=== PATIENT | female | born 1955 | race Caucasian/White ===

== ENCOUNTER 2016-12-21 09:46 | Outpatient (CLI) | payer MEDICARE ==
[2016-12-21 10:25] LABS: #Basophils 0.1 thou/uL (0.0-0.2); #Eosinphils 0.1 thou/uL (0.0-0.7); #Lymphocytes 1.6 thou/uL (1.20-3.40); #Monocytes 0.4 thou/uL (0.11-0.59); #Neutrophils 3.9 thou/uL (1.40-6.50); %Basophils 1.9 % (0.0-1.0); %Eosinophils 2.3 % (0.0-10.0); %Lymphocytes 26.1 % (21.0-51.0); %Monocytes 6.3 % (0.0-10.0); %Neutrophils 63.4 % (42.0-75.0); Hemoglobin 14.4 g/dL (12.0-16.0); Mean Corpuscular HGB CONC 32.9 g/dL (32.0-36.0); Mean Corpuscular Hemoglobin 32.7 pg (27.0-31.0); Mean Corpuscular Volume 99.4 fl (81.0-99.0); Mean Platelet Volume 8.6 fL (7.4-10.4); Platelet Count 194 thou/uL (130-400); RBC Distribution Width 13.4 % (11.5-14.5); Red Blood Cell (RBC) Count 4.41 mill/uL (4.20-5.40); White Blood Cell (WBC) Count 6.2 thou/uL (4.8-10.8)
[2016-12-21 10:33] LABS: Hemoglobin A1c 5.6 % (4.0-6.0)
[2016-12-21 10:52] LABS: ALT (SGPT) 20 U/L (0-55); AST (SGOT) 15 U/L (5-34); Albumin 4.1 g/dL (3.4-4.8); Alkaline Phosphatase 55 U/L (40-150); Anion Gap 13 mmol/L (10-20); BUN (Urea Nitrogen) 16 mg/dL (9.8-20.1); Bilirubin, Direct 0.1 mg/dL (0.1-0.3); Bilirubin, Total Less than 0.3 mg/dL (0.2-1.2); Calc. Creatinine Clearance 0 mL/min (70-130); Calcium 9.3 mg/dL (7.8-10.44); Carbon Dioxide 23 mmol/L (23-31); Cardiac Risk 3.4 (Less than 4.5); Chloride 107 mmol/L (98-107); Cholesterol 167 mg/dL (< 200 Desired); Estimated GFR-MDRD 70; Glucose 104 mg/dL (80-115); HDL Cholesterol 49 mg/dL (>60 Neg Risk); LDL Cholesterol, Calculated 104 mg/dL; Potassium 4.4 mmol/L (3.5-5.1); Protein, Total 6.6 g/dL (5.8-8.1); Sodium 139 mmol/L (136-145); Triglycerides 68 mg/dL (Less than 150)
[2016-12-21 13:44] LABS: Bilirubin Negative (Negative); Blood, Urine Negative (Negative); Clarity Clear (Clear); Glucose, Urine (Dipstick) Negative (Negative); Leukocyte Negative (Negative); Nitrite Negative (Negative); Protein, Urine (Dipstick) Negative (Neg-Trace); Specific Gravity, Urine 1.015 (1.005-1.030); Urobilinogen 0.2 mg/dL (0.2-1.0)
[2016-12-21 14:00] LABS: Bacteria/HPF None Seen HPF (None Seen); RBC/HPF None Seen HPF (0-3); WBC/HPF 0-3 HPF (0-3)
[2016-12-21 18:36] LABS: Microalbumin Urine Less than 1.0 mg/dL (0.5-50.0); Microalbumin/Creat Ratio 20.6 mg/g (Less than 30)
== END 2016-12-21 09:47 | disposition home or self-care (01) ==
LOC: MADLABBHPM 09:46
PROVIDERS: ATTEND Family Medicine
DX: E11.9 Type 2 diabetes mellitus without complications (principal); E78.5 Hyperlipidemia, unspecified; E66.9 Obesity, unspecified
CPT/HCPCS: 36415; 80048; 80061; 80076; 81001; 82043; 83036; 84443; 85025

== ENCOUNTER 2017-04-05 09:36 | Outpatient (CLI) | payer MEDICARE ==
[2017-04-05 10:10] LABS: Hemoglobin A1c 5.6 % (4.0-6.0)
[2017-04-05 10:40] LABS: ALT (SGPT) 20 U/L (8-55); AST (SGOT) 18 U/L (5-34); Albumin 4.1 g/dL (3.4-4.8); Alkaline Phosphatase 57 U/L (40-150); Anion Gap 14 mmol/L (10-20); BUN (Urea Nitrogen) 19 mg/dL (9.8-20.1); Bilirubin, Direct 0.1 mg/dL (0.1-0.3); Bilirubin, Total Less than 0.3 mg/dL (0.2-1.2); Calc. Creatinine Clearance 0 mL/min (70-130); Calcium 9.1 mg/dL (7.8-10.44); Carbon Dioxide 20 mmol/L (23-31); Cardiac Risk 2.7 (Less than 4.5); Chloride 111 mmol/L (98-107); Cholesterol 157 mg/dl (< 200 Desired); Estimated GFR-MDRD 72; Glucose 102 mg/dL (80-115); HDL Cholesterol 58 mg/dL (>60 Neg Risk); LDL Cholesterol, Calculated 86 mg/dL; Potassium 4.5 mmol/L (3.5-5.1); Protein, Total 6.8 g/dL (6.0-8.3); Sodium 140 mmol/L (136-145); Triglycerides 64 mg/dL (Less than 150)
== END 2017-04-05 09:37 | disposition home or self-care (01) ==
LOC: MADLABBHPM 09:36
PROVIDERS: ATTEND Family Medicine
DX: E78.5 Hyperlipidemia, unspecified (principal); E11.9 Type 2 diabetes mellitus without complications
CPT/HCPCS: 36415; 80048; 80061; 80076; 83036

== ENCOUNTER 2017-07-08 09:48 | Outpatient (CLI) | payer MEDICARE ==
[2017-07-08 11:04] LABS: ALT (SGPT) 29 U/L (8-55); AST (SGOT) 23 U/L (5-34); Albumin 4.3 g/dL (3.4-4.8); Alkaline Phosphatase 58 U/L (40-150); Anion Gap 13 mmol/L (10-20); BUN (Urea Nitrogen) 19 mg/dL (9.8-20.1); Bilirubin, Direct 0.2 mg/dL (0.1-0.3); Bilirubin, Total 0.4 mg/dL (0.2-1.2); Calc. Creatinine Clearance 0 mL/min (70-130); Calcium 9.6 mg/dL (7.8-10.44); Carbon Dioxide 23 mmol/L (23-31); Cardiac Risk 3.1 (Less than 4.5); Chloride 107 mmol/L (98-107); Cholesterol 179 mg/dl (< 200 Desired); Estimated GFR-MDRD 67; Glucose 98 mg/dL (80-115); HDL Cholesterol 57 mg/dL (>60 Neg Risk); LDL Cholesterol, Calculated 103 mg/dL; Potassium 4.4 mmol/L (3.5-5.1); Protein, Total 7.4 g/dL (6.0-8.3); Sodium 139 mmol/L (136-145); Triglycerides 96 mg/dL (Less than 150)
== END 2017-07-08 09:49 | disposition home or self-care (01) ==
LOC: MADLABBHPM 09:48
PROVIDERS: ATTEND Family Medicine
DX: E78.5 Hyperlipidemia, unspecified (principal); E11.9 Type 2 diabetes mellitus without complications
CPT/HCPCS: 36415; 80048; 80061; 80076

== ENCOUNTER 2017-10-11 10:59 | Outpatient (CLI) | payer MEDICARE ==
[2017-10-11 11:43] LABS: ALT (SGPT) 25 U/L (8-55); AST (SGOT) 20 U/L (5-34); Albumin 4.2 g/dL (3.4-4.8); Alkaline Phosphatase 56 U/L (40-150); Anion Gap 16 mmol/L (10-20); BUN (Urea Nitrogen) 21 mg/dL (9.8-20.1); Bilirubin, Direct 0.2 mg/dL (0.1-0.3); Bilirubin, Total 0.4 mg/dL (0.2-1.2); Calc. Creatinine Clearance 0 mL/min (70-130); Calcium 9.5 mg/dL (7.8-10.44); Carbon Dioxide 20 mmol/L (23-31); Cardiac Risk 3.2 (Less than 4.5); Chloride 107 mmol/L (98-107); Cholesterol 162 mg/dl (< 200 Desired); Estimated GFR-MDRD 68; Glucose 104 mg/dL (80-115); HDL Cholesterol 50 mg/dL (>60 Neg Risk); LDL Cholesterol, Calculated 100 mg/dL; Potassium 4.4 mmol/L (3.5-5.1); Sodium 139 mmol/L (136-145); Triglycerides 60 mg/dL (Less than 150)
[2017-10-11 15:57] LABS: Hemoglobin A1c 5.6 % (4.0-6.0)
== END 2017-10-11 11:00 | disposition home or self-care (01) ==
LOC: MADLABBHPM 10:59
PROVIDERS: ATTEND Family Medicine
DX: E78.5 Hyperlipidemia, unspecified (principal)
CPT/HCPCS: 36415; 80048; 80061; 80076; 83036

== ENCOUNTER 2018-01-10 11:08 | Outpatient (CLI) | payer MEDICARE ==
--- NOTE | 2018-01-10 13:48 | RAD ---
RADIOGRAPH LEFT HIP TWO VIEWS: Date: 01-10-18 History: 62-year-old female with nontraumatic left hip pain for one week. Comparison: None. FINDINGS: Mild bony hypertrophy of the acetabular roof. Focal region of mild joint space narrowing at the super olateral aspect of the hip joint. Otherwise, the rest of the hip joint space is maintained. Femoral h ead contour is maintained. No subcapital osteophytes. Enthesophytes of the greater and lesser trochan ters. No fracture or dislocation. IMPRESSION: Minimal/mild osteoarthrosis of the left hip. POS: MICA
== END 2018-01-10 11:09 | disposition home or self-care (01) ==
LOC: MADRAD 11:08
PROVIDERS: ATTEND Family Medicine
DX: M25.552 Pain in left hip (principal)

== ENCOUNTER 2018-03-03 13:07 | Outpatient (CLI) | payer MEDICARE ==
--- NOTE | 2018-03-03 14:03 | RAD ---
LEFT FOOT THREE VIEWS: HISTORY: Dropped a table saw in the foot three days ago with left foot pain. COMPARISON: None. FINDINGS: Three views of the left foot show first metatarsal head hyperplasia and hallux valgus deformity of th e great toe. There is no evidence of acute fracture or dislocation. Mild diffuse soft tissue swelli ng is seen. IMPRESSION: Degenerative changes of the great toe without acute osseous abnormality. POS: MICA
== END 2018-03-03 13:08 | disposition home or self-care (01) ==
LOC: MADRAD 13:07
PROVIDERS: ATTEND Family Medicine
DX: S90.32XA Contusion of left foot, initial encounter (principal)

== ENCOUNTER 2018-03-21 10:36 | Outpatient (CLI) | payer MEDICARE ==
[2018-03-21 12:02] LABS: #Basophils 0.1 thou/uL (0.0-0.2); #Eosinphils 0.2 thou/uL (0.0-0.7); #Lymphocytes 1.7 thou/uL (1.20-3.40); #Monocytes 0.4 thou/uL (0.11-0.59); %Basophils 1.1 % (0.0-1.0); %Eosinophils 2.9 % (0.0-10.0); %Lymphocytes 32.5 % (21.0-51.0); %Monocytes 7.3 % (0.0-10.0); %Neutrophils 56.2 % (42.0-75.0); Hemoglobin 14.7 g/dL (12.0-16.0); Mean Corpuscular HGB CONC 32.3 g/dL (32.0-36.0); Mean Corpuscular Hemoglobin 30.9 pg (27.0-31.0); Mean Corpuscular Volume 95.6 fl (81.0-99.0); Platelet Count 184 thou/uL (130-400); RBC Distribution Width 13.1 % (11.5-14.5); Red Blood Cell (RBC) Count 4.76 mill/uL (4.20-5.40); White Blood Cell (WBC) Count 5.3 thou/uL (4.8-10.8)
[2018-03-21 12:16] LABS: ALT (SGPT) 25 U/L (8-55); AST (SGOT) 19 U/L (5-34); Albumin 4.2 g/dL (3.4-4.8); Alkaline Phosphatase 49 U/L (40-150); Anion Gap 13 mmol/L (10-20); BUN (Urea Nitrogen) 13 mg/dL (9.8-20.1); Calc. Creatinine Clearance 0 mL/min (70-130); Calcium 9.7 mg/dL (7.8-10.44); Carbon Dioxide 25 mmol/L (23-31); Chloride 107 mmol/L (98-107); Estimated GFR-MDRD 66; Globulin 2.7 g/dL (2.4-3.5); Glucose 99 mg/dL (80-115); Potassium 4.3 mmol/L (3.5-5.1); Protein, Total 6.9 g/dL (6.0-8.3); Sodium 141 mmol/L (136-145)
[2018-03-21 12:57] LABS: Bilirubin, Total 0.3 mg/dL (0.2-1.2)
[2018-03-21 13:00] LABS: Bilirubin Negative (Negative); Blood, Urine Negative (Negative); Clarity Clear (Clear); Glucose, Urine (Dipstick) Negative (Negative); Leukocyte Negative (Negative); Nitrite Negative (Negative); Protein, Urine (Dipstick) Negative (Neg-Trace); Urobilinogen 0.2 mg/dL (0.2-1.0)
[2018-03-21 13:04] LABS: Bacteria/HPF Rare-Few HPF (None Seen); RBC/HPF 0-3 HPF (0-3); Squamous Epithelial 0-3 HPF (0-3); WBC/HPF 0-3 HPF (0-3)
== END 2018-03-21 10:37 | disposition home or self-care (01) ==
LOC: MADLABBHPM 10:36
PROVIDERS: ATTEND Family Medicine
DX: Z01.818 Encounter for other preprocedural examination (principal); E11.22 Type 2 diabetes mellitus with diabetic chronic kidney disease; N18.9 Chronic kidney disease, unspecified
CPT/HCPCS: 36415; 80053; 81001; 84443; 85025

== ENCOUNTER 2018-07-22 13:56 | Inpatient (IN) | payer MEDICARE ==
[2018-07-22] MEDS ORDERED: Acetaminophen 500 MG TAB PO PRN (19:13)
[2018-07-22] MEDS ORDERED: Nicotine 21 MG PATCH TOP SCH (19:30)
[2018-07-22] MEDS: Pravastatin Sodium 20 MG TAB PO SCH (21:09)
[2018-07-22] MEDS: Ciprofloxacin 500 MG TAB PO SCH (21:09)
[2018-07-22] MEDS: metroNIDAZOLE 250 MG TAB PO SCH (21:09)
[2018-07-22] MEDS: Vancomycin HCl 1 GM in Sodium Chloride 0.9% 250 ML 250 ML IVPB SCH (21:18)
[2018-07-22] MEDS: Vancomycin HCl 500 MG in Sodium Chloride 0.9% 100 ML IVPB SCH (21:19)
[2018-07-23] MEDS: Ciprofloxacin 500 MG TAB PO SCH ×2 (05:18→19:35)
[2018-07-23] MEDS ORDERED: Acetaminophen 325 MG TAB PO PRN (08:18)
[2018-07-23] MEDS ORDERED: Sodium Chloride 0.9% 10 ML ONE (10:25)
[2018-07-23] MEDS: Aspirin 81 mg Enteric Coated Tablet PO SCH (10:27)
[2018-07-23] MEDS: Enoxaparin Sodium 40 MG/0.4 ML SYRINGE SC SCH (10:29)
[2018-07-23] MEDS: Clopidogrel Bisulfate 75 MG TAB PO SCH (10:29)
[2018-07-23] MEDS: metroNIDAZOLE 250 MG TAB PO SCH ×3 (10:30→20:22)
[2018-07-23] MEDS: Vancomycin HCl 500 MG in Sodium Chloride 0.9% 100 ML IVPB SCH ×2 (10:30→20:22)
[2018-07-23] MEDS: Vancomycin HCl 1 GM in Sodium Chloride 0.9% 250 ML 250 ML IVPB SCH ×2 (10:31→20:27)
[2018-07-23] MEDS: Nicotine 21 MG PATCH TOP SCH (10:36)
--- NOTE | 2018-07-23 12:20 | HP ---
Admitted to [facility] on the afternoon of 07/22/2018. CHIEF COMPLAINT: Infection in the left foot. PRESENT ILLNESS: The patient is a 62-year-old white female who has a history of diabetes that is t controlled requiring no medication, who also has neuropathy of the lower extremity, peripheral rafa ry disease and long smoking history. She had developed a very painful bunion on her left foot and sh e also had injured her left fifth toe by dropping a heavy object on the toe with a traumatic crush in [facility]. The crush injury resulted in some ulceration to the tip of the fifth toe and gangrenous change s and eventually resulted in amputation of the left fifth toe at the PIP joint. Simultaneously, she underwent a surgical repair of the bunion of the left foot. The left fifth toe had been complicated by infection and ulceration. The infection had improved, but the ulcerations pr ogressed and the wound was not healing that resulted in the amputation on 07/04/2018. The patient al so underwent the surgical correction of the bunion in the left foot with hardware in the first ray on that same day. The patient presented to my office on 07/12/2018 with her foot painful, very red and swelled with no pulses in that left foot and with evidence of amputation of the left fifth toe. The incision was on the dorsum of the left foot from the base of the toe to the mid foot, had a little s erous drainage from the incision and early breakdown of the skin. The patient was referred to the [facility] emergency room due to severe postop cellulitis of the left foot. The patient was hospitaliz ed there at the [facility] from 07/12/2018 until 07/22/2018 for the cellulitis of the left foot. The cultures from the left fifth toe grew a MRSA and a Streptococcus epidermidis that was sensitive to v ancomycin and rifampin. The patient was seen by Dr. Mandujano, Infectious Disease who recommended that t he patient be continued on IV vancomycin for a 6-week period due to this postop cellulitis with the r isk of deep penetration of the organism. He felt it was very difficult to rule out deep space infect ion and consequently recommended the 6-week course of IV vancomycin, 6-week course of oral Cipro and rifampin and then switching the patient to minocycline. The patient while there showed improvement i n the foot. The redness was gradually abating. There was some breakdown of the incision on the dors um of the foot. She was seen by cardiovascular surgeon and found to have significant iliac disease t o her legs with approximately 95% stenosis to the left leg. She underwent stents in both iliacs on without any complications. She had holiness of pulses in both feet. She had a PICC rubin e placed in the right arm for the administration of the antibiotics. She was recommended to stop smo taya, which she has done, has been using Nicoderm patches. The patient was transferred to [facility] on the afternoon of 07/22/2018, and her IV antibiotics that is vancomycin was continued. The patient was seen early on the morning of 07/23/2018, she said she was doing very well. Her foot was feeling a lot better. The foot looks better and the redness all gone away. She said she has complet catie stopped smoking and her plans on doing the same. She is feeling much better and very opt imistic about her foot. PAST HISTORY: Patient has a history of diabetes type 2. This was due to large amount of weight redu ction. Her diabetes has been controlled with diet alone and no medication. Her hemoglobin A1c was 5 .5 as of 06/21/2018. The patient has a history of traumatic injury to the left fifth toe that result ed in ulceration of the tip of the toe infection and eventual gangrene that resulted in amputation of the left fifth toe at the PIP joint on 07/04/2018. The patient had a bunion repair with hardware on the left foot on 07/04/2018 complicated by postop cellulitis, see above. The patient has peripheral neuropathy of the lower extremities, hyperlipidemia, peripheral artery disease, bilateral iliac dise ase particularly on the left, requiring stent placement bilaterally on 07/21/2018, venous insufficien cy of the lower extremities complicated by post-phlebitic syndrome of the right leg, depression, obes ity, spinal stenosis of the lumbar region at L4-L5, L5-S1 region for which she underwent a decompress ion surgery and placement of autograft and allograft for fusion and L5 diskectomy in 08/[address] Mala Chong. She also has severe cervical spondylosis for which she underwent a C4-C5 anterior cerv ical diskectomy and fusion and diskectomy at the C5-C6 in 05/[address] White. The patient has had a right carpal tunnel release, open de Quervain release, left ankle surgery for removal of a chipped bone, bilateral tubal ligation, tonsillectomy. PRESENT MEDICINES: Acetaminophen 500 mg every 6 hours p.r.n., aspirin 81 mg daily, ciprofloxacin 500 mg b.i.d. for 6 weeks, Plavix 75 mg daily, Lovenox 40 mg daily, metronidazole 250 mg t.i.d. for 6 we eks, Naprosyn 500 mg t.i.d. p.r.n., nicotine patch 21 mg daily, pravastatin 20 mg daily, sertraline 5 0 mg at bedtime, vancomycin 1500 mg every 12 hours for 6 weeks. ALLERGIES: MORPHINE, CODEINE, but able to take hydrocodone, potassium, Meloxicam and oxycodone. REVIEW OF SYSTEMS: General: The patient said she has not had any fever other than when she first en tered the hospital. She has not had any recent change in her weight. Head and Neck: No complaints. Pulmonary: No complaints. She says her breathing is much better since she stopped smoking. Cardi ovascular: No complaints. Gastrointestinal: No complaints. Genitourinary: No complaints. Muscul oskeletal: The patient said her left foot is feeling much better since the infection has improved. HABITS: Alcohol none. Tobacco, the patient smokes a pack of cigarettes a day, but has stopped these as of 07/12/2018. 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 She is and lives at home with her obed matthews CODE STATUS: FULL CODE. PHYSICAL EXAMINATION: GENERAL: Shows a very pleasant 62-year-old white female who is alert, oriented x3, appears very comf ortable and in no distress. VITAL SIGNS: Her temperature is 98.2, pulse 86, respirations 20, O2 saturation 97% on room air, bloo d pressure 160/64, earlier 135/73. Her weight is 218. HEAD: Normocephalic, atraumatic. EYES: Pupils are equal, round, and reactive. Sclerae nonicteric. EARS: TMs are clear. NOSE: Normal. MOUTH AND THROAT: Normal. NECK: Carotids are equal and strong, no bruits. Thyroid not enlarged. LUNGS: Clear. HEART: Regular rate. No murmurs. ABDOMEN: Soft, no organomegaly, nor areas of tenderness. EXTREMITIES: Lowe extremities, there is no edema. Right foot, dorsalis pedis pulse 2+, posterior ti bialis 2+. Left foot, dorsalis pedis 2+, posterior tibialis 2+. The patient has had the left fifth toe amputated at the PIP joint. There are sutures present at the tip of the toe. It looks that the toe is healing well. There is no redness. The foot has a dark pink discoloration over the dorsum of the foot beginning at the base of the toe and extending up to the midfoot. The foot does not have i ncreased heat. The incision that runs from the base of the toe to the mid foot has the sutures that will be removed. This incision has superficial breakdown and ulceration. There is no odor to it. T here is still a little slight edema. Overall, the foot looks far better than from 07/12/2018 where t he whole foot was red, hot and swelled and extremely tender. IMPRESSION: 1. Cellulitis of the left foot. A. Postop infection following a bunion repair on 07/04/2018 with a simultaneous amputation of the le ft fifth toe following a traumatic crush injury to the tip of the toe with gangrenous and infection c johnson. B. Possible deep space involvement necessitating a long course of IV vancomycin. C. Cultures from the left fifth toe grew methicillin-resistant Staphylococcus aureus and Streptococc us epidermidis. D. Scheduled for 6-week course of IV vancomycin, oral ciprofloxacin and Flagyl. E. Marked improvement. 2. Status post bunion repair with hardware on 07/04/2018. A. Complicated by postop cellulitis. B. Wound incision has broke down, but anticipate healing by secondary intention. C. On IV vancomycin and improving. 3. Status post amputation of the left fifth toe at the PIP joint, following a crush injury complicat ed by infection and gangrenous change. A. Improving. 4. History of diabetes mellitus. A. Hemoglobin A1c 5.5 on 06/21/2018. B. Controlled with no medications since marked weight reduction. 5. Peripheral artery disease. A. Status post stents placed in the iliac vessels bilateral on 07/21/2018. B. Following stent placement, excellent pulses in both feet as of 07/23/2018. 6. Hyperlipidemia. 7. Cigarette abuse. A. Ceased smoking as of 07/12/2018. 8. Obesity. 9. Venous insufficiency of the lower extremities. A. Complicated by post-phlebitic syndrome of the right leg. 10. Depression, controlled. PLAN: The patient has been admitted to [facility] where she will continue on the vancomycin fo r 6 weeks that is until 08/22/2018. She will be followed with weekly CBC, CMP, sed rate, C-reactive protein, and vancomycin levels. She will also be placed on ciprofloxacin 500 mg b.i.d. and metronida zole 250 mg t.i.d. until 08/22/2018 and then switch to probably oral minocycline. We will continue h er routine medicine and we will continue deep venous thrombosis prophylaxis with Lovenox. PT will wo rk with her. The wound will be cleansed and the dorsum of the foot will be cleansed daily and [employer] and overlying gauze and Kerlix will be applied. Sutures were removed today. CODE STATUS: FULL.
[2018-07-23] MEDS: Pravastatin Sodium 20 MG TAB PO SCH (20:22)
[2018-07-24 05:18] LABS: #Basophils 0.1 thou/uL (0.0-0.2); #Eosinphils 0.3 thou/uL (0.0-0.7); #Lymphocytes 1.1 thou/uL (1.20-3.40); #Monocytes 0.6 thou/uL (0.11-0.59); #Neutrophils 4.3 thou/uL (1.40-6.50); %Basophils 1.3 % (0.0-1.0); %Eosinophils 4.1 % (0.0-10.0); %Lymphocytes 17.4 % (21.0-51.0); %Monocytes 9.7 % (0.0-10.0); %Neutrophils 67.5 % (42.0-75.0); Hemoglobin 12.8 g/dL (12.0-16.0); Mean Corpuscular HGB CONC 32.5 g/dL (32.0-36.0); Mean Corpuscular Hemoglobin 31.6 pg (27.0-31.0); Mean Corpuscular Volume 97.2 fL (78.0-98.0); Mean Platelet Volume 7.3 fL (7.4-10.4); Platelet Count 238 thou/uL (130-400); RBC Distribution Width 12.8 % (11.5-14.5); Red Blood Cell (RBC) Count 4.03 mill/uL (4.20-5.40); White Blood Cell (WBC) Count 6.3 thou/uL (4.8-10.8)
[2018-07-24] MEDS: Ciprofloxacin 500 MG TAB PO SCH ×2 (05:26→19:36)
[2018-07-24 05:32] LABS: ALT (SGPT) 47 U/L (8-55); AST (SGOT) 25 U/L (5-34); Albumin 3.7 g/dL (3.4-4.8); Alkaline Phosphatase 55 U/L (40-150); Anion Gap 16 mmol/L (10-20); BUN (Urea Nitrogen) 12 mg/dL (9.8-20.1); BUN/Creatinine Ratio 15.79; Bilirubin, Total 0.2 mg/dL (0.2-1.2); Calc. Creatinine Clearance 118 mL/min (70-130); Calcium 9.8 mg/dL (7.8-10.44); Carbon Dioxide 21 mmol/L (23-31); Cardiac Risk 3.8 (Less than 4.5); Chloride 108 mmol/L (98-107); Cholesterol 175 mg/dl (< 200 Desired); Estimated GFR-MDRD 77; Globulin 3.1 g/dL (2.4-3.5); Glucose 111 mg/dL (80-115); HDL Cholesterol 46 mg/dL (>60 Neg Risk); LDL Cholesterol, Calculated 114 mg/dL; Phosphorus 3.9 mg/dL (2.3-4.7); Potassium 4.4 mmol/L (3.5-5.1); Protein, Total 6.8 g/dL (6.0-8.3); Sodium 141 mmol/L (136-145); Triglycerides 76 mg/dL (Less than 150)
[2018-07-24] MEDS: Vancomycin HCl 500 MG in Sodium Chloride 0.9% 100 ML IVPB SCH ×2 (09:32→21:27)
[2018-07-24] MEDS: Vancomycin HCl 1 GM in Sodium Chloride 0.9% 250 ML 250 ML IVPB SCH ×2 (09:32→21:27)
[2018-07-24] MEDS: Aspirin 81 mg Enteric Coated Tablet PO SCH (09:38)
[2018-07-24] MEDS: Clopidogrel Bisulfate 75 MG TAB PO SCH (09:38)
[2018-07-24] MEDS: metroNIDAZOLE 250 MG TAB PO SCH ×3 (09:38→21:27)
[2018-07-24] MEDS: Enoxaparin Sodium 40 MG/0.4 ML SYRINGE SC SCH (09:38)
[2018-07-24] MEDS: Nicotine 21 MG PATCH TOP SCH (09:40)
--- NOTE | 2018-07-24 10:01 | PRG ---
DATE OF SERVICE: 07/24/2018 SUBJECTIVE: The patient said she had a good night. She is feeling good. No shortness of breath. H er foot is feeling better. OBJECTIVE: The patient is sitting on the edge of the bed. She is alert, appears very comfortable, i n no distress. Temp 98.6, pulse 89, respirations 22, O2 sat 97% on room air, blood pressure 146/67. Lungs are clear. Heart, regular rate. Left foot, left fifth toe the amputation site sutures are st ill present. A little crusting over the tip of the toe. The toe has no redness or drainage. The fo ot overall, looks better. There is some dark pink discoloration to the dorsum of the foot, but not a ny larger than what it was yesterday. The open wound looks a little die cleaner and a little dryer over the old incision, the sutures had been removed. There is no odor. Her lab shows an H&H of 12.8, 39.2. White cell count 6300 with 68% segs, 17% lymphocytes, and a plat elet count of 238,000. Sed rate 41. Sodium 141, potassium 4.4, BUN 12, creatinine 0.76. GFR 77, gl ucose 111. Liver studies are normal. Cholesterol 175, triglycerides 76, LDL 114, HDL 46. ASSESSMENT: 1. Cellulitis of the left foot. A. Postop infection following a bunion repair on 07/04/2018 with a simultaneous amputation of the le ft fifth toe following a traumatic crush injury to the tip of the toe with gangrenous and infection c johnson. B. Possible deep space involvement necessitating a long course of IV vancomycin. C. Cultures from the left fifth toe grew methicillin-resistant Staphylococcus aureus and Streptococc us epidermidis. D. Scheduled for 6-week course of IV vancomycin, oral ciprofloxacin and Flagyl. E. Gradual improvement as of 07/24/2018. 2. Status post bunion repair with hardware on 07/04/2018. A. Complicated by postop cellulitis. B. Wound incision has broke down, but anticipate healing by secondary intention. 1. The wound looks die cleaner and a little better as of 07/24/2018. C. On IV vancomycin and improving. 3. Status post amputation of the left fifth toe at the PIP joint, following a crush injury complicat ed by infection and gangrenous change. A. Improving. 4. History of diabetes mellitus. A. Hemoglobin A1c 5.5 on 06/21/2018. B. Controlled with no medications since marked weight reduction. 5. Peripheral artery disease. A. Status post stents placed in the iliac vessels bilateral on 07/21/2018. B. Following stent placement, excellent pulses in both feet as of 07/23/2018. 6. Hyperlipidemia. 7. Cigarette abuse. A. Ceased smoking as of 07/12/2018. 8. Obesity. 9. Venous insufficiency of the lower extremities. A. Complicated by post-phlebitic syndrome of the right leg. 10. Depression, controlled. PLAN: Continue IV antibiotics, trough level drawn today pending. Continue PT.
[2018-07-24] MEDS ORDERED: Sodium Chloride 0.9% 10 ML ONE (16:42)
[2018-07-24] MEDS: Pravastatin Sodium 20 MG TAB PO SCH (21:27)
[2018-07-25] MEDS: Ciprofloxacin 500 MG TAB PO SCH ×2 (05:26→19:36)
[2018-07-25 05:54] LABS: Vancomycin, Trough 23.5 ug/mL
[2018-07-25] MEDS: Clopidogrel Bisulfate 75 MG TAB PO SCH (09:35)
[2018-07-25] MEDS: Aspirin 81 mg Enteric Coated Tablet PO SCH (09:36)
[2018-07-25] MEDS: metroNIDAZOLE 250 MG TAB PO SCH ×3 (09:36→21:06)
[2018-07-25] MEDS: Nicotine 21 MG PATCH TOP SCH (09:36)
[2018-07-25] MEDS: Vancomycin HCl 1 GM in Sodium Chloride 0.9% 250 ML 250 ML IVPB SCH ×2 (09:36→21:08)
[2018-07-25] MEDS: Enoxaparin Sodium 40 MG/0.4 ML SYRINGE SC SCH (09:36)
[2018-07-25] MEDS: Collagenase 250 UNITS/GM Ointment 30 GM TUBE TOP SCH (09:36)
[2018-07-25] MEDS: Vancomycin HCl 500 MG in Sodium Chloride 0.9% 100 ML IVPB SCH ×2 (09:37→21:07)
--- NOTE | 2018-07-25 10:52 | PRG ---
DATE OF SERVICE: 07/25/2018 SUBJECTIVE: The patient is doing alright today. She had no new complaints. OBJECTIVE: The patient is alert, appears comfortable and in no distress. Her vital signs show a tem perature of 97.1, pulse 72, respirations 20, O2 sat 99% on room air, blood pressure 124/59. Lungs ar e clear. Heart, regular rate. Vancomycin trough level 23.5. The left foot, the patient's wound along the dorsum of the foot shows some black yellowish necrotic t issue on the base that is dry. There is just some pinkness around the wound and mild swelling, a lit tle swelling of the MP joint of the first MP joint. The left fifth toe, the sutures are still presen t. There is just a little crusting on the tip of the toe, but no redness. ASSESSMENT: 1. Cellulitis of the left foot. A. Postop infection following a bunion repair on 07/04/2018 with a simultaneous amputation of the le ft fifth toe following a traumatic crush injury to the tip of the toe with gangrenous and infection c johnson. B. Possible deep space involvement necessitating a long course of IV vancomycin. C. Cultures from the left fifth toe grew methicillin-resistant Staphylococcus aureus and Streptococc us epidermidis. D. Scheduled for 6-week course of IV vancomycin, oral ciprofloxacin and Flagyl. E. Gradual improvement. Wound base has developed some black yellowish necrotic tissue as of 2017. 2. Status post bunion repair with hardware on 07/04/2018. A. Complicated by postop cellulitis. B. Wound incision has broke down, but anticipate healing by secondary intention. 1. The wound base has developed a little black yellowish necrotic tissue as of 07/25/2018. C. On IV vancomycin and improving. 3. Status post amputation of the left fifth toe at the PIP joint, following a crush injury complicat ed by infection and gangrenous change. A. Improving. 4. History of diabetes mellitus. A. Hemoglobin A1c 5.5 on 06/21/2018. B. Controlled with no medications since marked weight reduction. 5. Peripheral artery disease. A. Status post stents placed in the iliac vessels bilateral on 07/21/2018. B. Following stent placement, excellent pulses in both feet as of 07/23/2018. 6. Hyperlipidemia. 7. Cigarette abuse. A. Ceased smoking as of 07/12/2018. 8. Obesity. 9. Venous insufficiency of the lower extremities. A. Complicated by post-phlebitic syndrome of the right leg. 10. Depression, controlled. PLAN: Continue the IV vancomycin, the oral Cipro and metronidazole. The wound will be cleansed elieser y with saline, then Santyl ointment will be applied and then a gauze and overlying Mepilex.
[2018-07-25] MEDS: Pravastatin Sodium 20 MG TAB PO SCH (21:18)
[2018-07-26] MEDS: Naproxen 500 MG TAB PO PRN (05:04)
[2018-07-26] MEDS: Ciprofloxacin 500 MG TAB PO SCH ×2 (05:07→21:15)
[2018-07-26] MEDS: Collagenase 250 UNITS/GM Ointment 30 GM TUBE TOP SCH (08:46)
[2018-07-26] MEDS: Enoxaparin Sodium 40 MG/0.4 ML SYRINGE SC SCH (08:46)
[2018-07-26] MEDS: Clopidogrel Bisulfate 75 MG TAB PO SCH (08:46)
[2018-07-26] MEDS: Nicotine 21 MG PATCH TOP SCH (08:46)
[2018-07-26] MEDS: Aspirin 81 mg Enteric Coated Tablet PO SCH (08:47)
[2018-07-26] MEDS: Vancomycin HCl 500 MG in Sodium Chloride 0.9% 100 ML IVPB SCH ×2 (08:47→21:00)
[2018-07-26] MEDS: Vancomycin HCl 1 GM in Sodium Chloride 0.9% 250 ML 250 ML IVPB SCH ×2 (08:47→20:59)
[2018-07-26] MEDS: metroNIDAZOLE 250 MG TAB PO SCH ×3 (08:47→21:15)
--- NOTE | 2018-07-26 10:16 | PRG ---
DATE OF SERVICE: 07/26/2018 SUBJECTIVE: The patient thinks she is doing alright. The patient said that she is having some sore ness in her back which is a chronic pain and later she is due to have some surgery on her low back. This will have to be put off until her infections are completely clear. The patient is not wearing h er boot on her left foot and her foot gets a little sore after walking. Therapist is working with he r, and she is doing well with her walking, but just limiting the distance since this seems to aggrava te the pain. OBJECTIVE: The patient is alert, appears in no distress. Her vital signs show a temperature of 97.9 , pulse 68, respirations 20, O2 sat 95% on room air, blood pressure 133/63. Lungs are clear. Heart, regular rate. Left foot; the incision looks a little more dry. There was a little yellowish-brown drainage on the dressing. The wound bed is still yellow and has some black eschar. The skin immedia tely surrounding the wound has a light pink purple discoloration, but overall the foot looks a little better. The sutures are still in the tip of the left fifth toe that was amputated and there is just a little dry blood there. Overall, it looks better. ASSESSMENT: 1. Cellulitis of the left foot. A. Postop infection following a bunion repair on 07/04/2018 with a simultaneous amputation of the le ft fifth toe following a traumatic crush injury to the tip of the toe with gangrenous and infection c johnson. B. Possible deep space involvement necessitating a long course of IV vancomycin. C. Cultures from the left fifth toe grew methicillin-resistant Staphylococcus aureus and Streptococc us epidermidis. D. Scheduled for 6-week course of IV vancomycin, oral ciprofloxacin and Flagyl. E. Slow gradual improvement. The wound base has still a little yellowish necrotic tissue which Solo yl ointment was started on 07/25/2018. Wound looks a little better as of 07/26/2018. 2. Status post bunion repair with hardware on 07/04/2018. A. Complicated by postop cellulitis. B. Wound incision has broke down, but anticipate healing by secondary intention. 1. The wound base has developed a little black yellowish necrotic tissue as of 07/25/2018. Stab le with mild improvement as of 07/26/2018. C. On IV vancomycin and improving. 3. Status post amputation of the left fifth toe at the PIP joint, following a crush injury complicat ed by infection and gangrenous change. A. Improving. 4. History of diabetes mellitus. A. Hemoglobin A1c 5.5 on 06/21/2018. B. Controlled with no medications since marked weight reduction. 5. Peripheral artery disease. A. Status post stents placed in the iliac vessels bilateral on 07/21/2018. B. Following stent placement, excellent pulses in both feet as of 07/23/2018. 6. Hyperlipidemia. 7. Cigarette abuse. A. Ceased smoking as of 07/12/2018. 8. Obesity. 9. Venous insufficiency of the lower extremities. A. Complicated by post-phlebitic syndrome of the right leg. 10. Depression, controlled. 11. Chronic low back pain secondary to lumbar spondylosis. PLAN: Continue present care. Will utilize a Gaymar pump on her back. Continue present wound care. Continue PT.
[2018-07-26] MEDS: Pravastatin Sodium 20 MG TAB PO SCH (21:15)
[2018-07-27] MEDS: Ciprofloxacin 500 MG TAB PO SCH ×2 (05:35→19:19)
[2018-07-27 08:31] LABS: Vancomycin, Trough 17.9 ug/mL
[2018-07-27] MEDS: metroNIDAZOLE 250 MG TAB PO SCH ×3 (08:42→20:35)
[2018-07-27] MEDS: Clopidogrel Bisulfate 75 MG TAB PO SCH (08:42)
[2018-07-27] MEDS: Collagenase 250 UNITS/GM Ointment 30 GM TUBE TOP SCH (08:42)
[2018-07-27] MEDS: Aspirin 81 mg Enteric Coated Tablet PO SCH (08:42)
[2018-07-27] MEDS: Enoxaparin Sodium 40 MG/0.4 ML SYRINGE SC SCH (08:42)
--- NOTE | 2018-07-27 09:24 | PRG ---
DATE OF SERVICE: 07/27/2018 SUBJECTIVE: The patient says she feels better today. Foot is feeling better. She is scheduled to s her histology specialist, Dr. Valenzuela, tomorrow and on the of this month she is due to [facility] In August she is scheduled to see her forensic accountant, Dr. Rodrigues, who di d the stents for her legs. OBJECTIVE: The patient is alert, looks very comfortable, in no distress. Temp 97.1, pulse 73, respi rations 22, O2 sat 99% on room air, blood pressure 132/61. Lungs are clear. Heart, regular rate. L eft foot, the swelling in the foot is much improved and almost resolved. Swelling over the first MP joint is also much better. The wound looks a little dryer, looks better, still some yellow blackish necrotic tissue at the base of the wound, but overall this is a little bit less. The surrounding ski n of the wound is light purplish, but looks better. ASSESSMENT: 1. Cellulitis of the left foot. A. Postop infection following a bunion repair on 07/04/2018 with a simultaneous amputation of the le ft fifth toe following a traumatic crush injury to the tip of the toe with gangrenous and infection c johnson. B. Possible deep space involvement necessitating a long course of IV vancomycin. C. Cultures from the left fifth toe grew methicillin-resistant Staphylococcus aureus and Streptococc us epidermidis. D. Scheduled for 6-week course of IV vancomycin, oral ciprofloxacin and Flagyl. E. Improved as of 07/27/2018. 2. Status post bunion repair with hardware on 07/04/2018. A. Complicated by postop cellulitis. B. Wound incision has broke down, but anticipate healing by secondary intention. 1. Wound looks better. Still has some necrotic tissue at the base, but improved as of 07/27/2018 . C. On IV vancomycin and improving. 3. Status post amputation of the left fifth toe at the PIP joint, following a crush injury complicat ed by infection and gangrenous change. A. Improving. 4. History of diabetes mellitus. A. Hemoglobin A1c 5.5 on 06/21/2018. B. Controlled with no medications since marked weight reduction. 5. Peripheral artery disease. A. Status post stents placed in the iliac vessels bilateral on 07/21/2018. B. Following stent placement, excellent pulses in both feet as of 07/23/2018. 6. Hyperlipidemia. 7. Cigarette abuse. A. Ceased smoking as of 07/12/2018. 8. Obesity. 9. Venous insufficiency of the lower extremities. A. Complicated by post-phlebitic syndrome of the right leg. 10. Depression, controlled. 11. Chronic low back pain secondary to lumbar spondylosis. A. Controlled as of 07/27/2018. PLAN: Continue present wound care. Continue IV antibiotics and oral antibiotics. Continue the Gaym ar pump for her low back as needed. The patient said this helped a lot for her back. The patient ma y have a pass to see Dr. Valenzuela and later Dr. Mandujano.
[2018-07-27] MEDS: Nicotine 21 MG PATCH TOP SCH (10:10)
[2018-07-27] MEDS: Vancomycin HCl 500 MG in Sodium Chloride 0.9% 100 ML IVPB SCH ×2 (10:11→20:34)
[2018-07-27] MEDS: Vancomycin HCl 1 GM in Sodium Chloride 0.9% 250 ML 250 ML IVPB SCH ×2 (10:11→20:35)
[2018-07-27] MEDS: Pravastatin Sodium 20 MG TAB PO SCH (20:36)
--- NOTE | 2018-07-28 14:52 | PRG ---
DATE OF SERVICE: 07/28/2018 SUBJECTIVE: The patient said she is feeling better. She is scheduled to go this afternoon to see he r machine bander and cellophaner for follow up on her foot. The patient said her foot is feeling better. OBJECTIVE: The patient is sitting up in bed. She is alert, talkative, appears very comfortable in n o distress. Her temperature is 97, pulse 79, respirations 16, O2 sat 96% on room air, blood pressure 141/66. Lungs are clear. Heart, regular rate. Lower extremities, no edema. Left foot looks syl r. The fifth toe that the distal portion has been amputated looks better. The incision is healing, has a little crusting. The sutures are still present. The dorsum of the foot, the wound looks syl r. There is still a little pink light purplish discoloration immediately around the wound. The woun d bed is a little dryer and there is a little less of yellowish necrotic tissue at the base. Overall , the foot looks better. ASSESSMENT: 1. Cellulitis of the left foot. A. Postop infection following a bunion repair on 07/04/2018 with a simultaneous amputation of the le ft fifth toe following a traumatic crush injury to the tip of the toe with gangrenous and infection c johnson. B. Possible deep space involvement necessitating a long course of IV vancomycin. C. Cultures from the left fifth toe grew methicillin-resistant Staphylococcus aureus and Streptococc us epidermidis. D. Scheduled for 6-week course of IV vancomycin, oral ciprofloxacin and Flagyl. E. Improved as of 07/28/2018. 2. Status post bunion repair with hardware on 07/04/2018. A. Complicated by postop cellulitis. B. Wound incision has broke down, but anticipate healing by secondary intention. 1. Wound looks better. Still has some necrotic tissue at the base, but improved as of 07/28/2018 . C. Remains on IV vancomycin and oral Cipro and metronidazole. 3. Status post amputation of the left fifth toe at the PIP joint, following a crush injury complicat ed by infection and gangrenous change. A. Improving. 4. History of diabetes mellitus. A. Hemoglobin A1c 5.5 on 06/21/2018. B. Controlled with no medications since marked weight reduction. 5. Peripheral artery disease. A. Status post stents placed in the iliac vessels bilateral on 07/21/2018. B. Following stent placement, excellent pulses in both feet as of 07/23/2018. 6. Hyperlipidemia. 7. Cigarette abuse. A. Ceased smoking as of 07/12/2018. 8. Obesity. 9. Venous insufficiency of the lower extremities. A. Complicated by post-phlebitic syndrome of the right leg. 10. Depression, controlled. 11. Chronic low back pain secondary to lumbar spondylosis. A. Controlled as of 07/28/2018. PLAN: Continue present care. Continue IV antibiotics. The patient due to see Dr. Valenzuela this after noon. Continue present wound care.
[2018-07-28] MEDS: Nicotine 21 MG PATCH TOP SCH (15:57)
[2018-07-28] MEDS: Ciprofloxacin 500 MG TAB PO SCH ×2 (15:57→20:57)
[2018-07-28] MEDS: Collagenase 250 UNITS/GM Ointment 30 GM TUBE TOP SCH (15:57)
[2018-07-28] MEDS: Clopidogrel Bisulfate 75 MG TAB PO SCH (15:57)
[2018-07-28] MEDS: Enoxaparin Sodium 40 MG/0.4 ML SYRINGE SC SCH (15:57)
[2018-07-28] MEDS: metroNIDAZOLE 250 MG TAB PO SCH ×3 (15:57→20:58)
[2018-07-28] MEDS: Aspirin 81 mg Enteric Coated Tablet PO SCH (15:57)
[2018-07-28] MEDS: Vancomycin HCl 500 MG in Sodium Chloride 0.9% 100 ML IVPB SCH ×2 (15:58→20:56)
[2018-07-28] MEDS: Vancomycin HCl 1 GM in Sodium Chloride 0.9% 250 ML 250 ML IVPB SCH ×2 (15:58→20:55)
[2018-07-28] MEDS: Pravastatin Sodium 20 MG TAB PO SCH (20:57)
[2018-07-29] MEDS: Ciprofloxacin 500 MG TAB PO SCH ×2 (06:14→20:20)
[2018-07-29] MEDS: Vancomycin HCl 500 MG in Sodium Chloride 0.9% 100 ML IVPB SCH ×2 (08:56→20:20)
[2018-07-29] MEDS: Nicotine 21 MG PATCH TOP SCH (08:57)
[2018-07-29] MEDS: Aspirin 81 mg Enteric Coated Tablet PO SCH (08:57)
[2018-07-29] MEDS: Vancomycin HCl 1 GM in Sodium Chloride 0.9% 250 ML 250 ML IVPB SCH ×2 (08:57→20:19)
[2018-07-29] MEDS: Enoxaparin Sodium 40 MG/0.4 ML SYRINGE SC SCH (08:57)
[2018-07-29] MEDS: metroNIDAZOLE 250 MG TAB PO SCH ×3 (08:57→20:20)
[2018-07-29] MEDS: Clopidogrel Bisulfate 75 MG TAB PO SCH (08:57)
[2018-07-29] MEDS: Collagenase 250 UNITS/GM Ointment 30 GM TUBE TOP SCH (08:58)
[2018-07-29] MEDS: Pravastatin Sodium 20 MG TAB PO SCH (20:20)
[2018-07-30] MEDS: Ciprofloxacin 500 MG TAB PO SCH ×2 (05:20→19:39)
[2018-07-30] MEDS: Nicotine 21 MG PATCH TOP SCH (10:02)
[2018-07-30] MEDS: Clopidogrel Bisulfate 75 MG TAB PO SCH (10:02)
[2018-07-30] MEDS: Enoxaparin Sodium 40 MG/0.4 ML SYRINGE SC SCH (10:02)
[2018-07-30] MEDS: metroNIDAZOLE 250 MG TAB PO SCH ×3 (10:02→21:08)
[2018-07-30] MEDS: Aspirin 81 mg Enteric Coated Tablet PO SCH (10:02)
[2018-07-30] MEDS: Vancomycin HCl 1 GM in Sodium Chloride 0.9% 250 ML 250 ML IVPB SCH ×2 (10:03→21:06)
[2018-07-30] MEDS: Vancomycin HCl 500 MG in Sodium Chloride 0.9% 100 ML IVPB SCH ×2 (10:03→21:05)
[2018-07-30] MEDS: Collagenase 250 UNITS/GM Ointment 30 GM TUBE TOP SCH (10:04)
[2018-07-30] MEDS: Pravastatin Sodium 20 MG TAB PO SCH (21:08)
[2018-07-31] MEDS: Ciprofloxacin 500 MG TAB PO SCH ×2 (05:00→19:21)
[2018-07-31 05:21] LABS: ALT (SGPT) 42 U/L (8-55); AST (SGOT) 21 U/L (5-34); Albumin 3.6 g/dL (3.4-4.8); Alkaline Phosphatase 46 U/L (40-150); Anion Gap 13 mmol/L (10-20); BUN (Urea Nitrogen) 17 mg/dL (9.8-20.1); Bilirubin, Total 0.2 mg/dL (0.2-1.2); Calc. Creatinine Clearance 115 mL/min (70-130); Calcium 9.6 mg/dL (7.8-10.44); Carbon Dioxide 25 mmol/L (23-31); Chloride 108 mmol/L (98-107); Estimated GFR-MDRD 75; Globulin 2.6 g/dL (2.4-3.5); Glucose 99 mg/dL (80-115); Potassium 4.2 mmol/L (3.5-5.1); Protein, Total 6.2 g/dL (6.0-8.3); Sodium 142 mmol/L (136-145)
[2018-07-31 05:24] LABS: Eosinophils 2 % (0-10); Hemoglobin 12.4 g/dL (12.0-16.0); Lymphocytes 16 % (21-51); MDiff Complete? YES; Mean Corpuscular Hemoglobin 33.1 pg (27.0-31.0); Mean Corpuscular Volume 97.3 fL (78.0-98.0); Mean Platelet Volume 7.4 fL (7.4-10.4); Monocytes 3 % (0-10); Neutrophil 72 % (42-75); PLT Morphology Comment Appears Adequate; Platelet Count 227 thou/uL (130-400); RBC Morphology Normal; Reactive Lymphocytes 6 % (0-10); Red Blood Cell (RBC) Count 3.75 mill/uL (4.20-5.40); White Blood Cell (WBC) Count 4.6 thou/uL (4.8-10.8)
[2018-07-31 08:18] LABS: Vancomycin, Trough 20.5 ug/mL
[2018-07-31] MEDS: Clopidogrel Bisulfate 75 MG TAB PO SCH (08:49)
[2018-07-31] MEDS: Enoxaparin Sodium 40 MG/0.4 ML SYRINGE SC SCH (08:49)
[2018-07-31] MEDS: metroNIDAZOLE 250 MG TAB PO SCH ×3 (08:49→21:40)
[2018-07-31] MEDS: Aspirin 81 mg Enteric Coated Tablet PO SCH (08:51)
[2018-07-31] MEDS: Collagenase 250 UNITS/GM Ointment 30 GM TUBE TOP SCH (08:53)
[2018-07-31] MEDS: Vancomycin HCl 500 MG in Sodium Chloride 0.9% 100 ML IVPB SCH ×2 (08:54→21:42)
[2018-07-31] MEDS: Vancomycin HCl 1 GM in Sodium Chloride 0.9% 250 ML 250 ML IVPB SCH ×2 (08:54→21:42)
[2018-07-31] MEDS: Nicotine 7 MG PATCH TOP SCH (09:14)
--- NOTE | 2018-07-31 10:02 | PRG ---
DATE OF SERVICE: 07/29/2018 SUBJECTIVE: The patient said that she is doing better. Her foot is feeling better. Yesterday, she went and saw Dr. 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 Crushing Foreman suggested not using the Mepilex, it gives her so me pressure against the wound, and just cover with a gauze wrap and 4 x 4, which will be done. Sutur es were removed from the fifth toe. Overall, has felt things were going well. OBJECTIVE: The patient is alert, appears in no distress. She looks very comfortable. Her vital sig ns show a temperature 98.4, pulse 77, respirations 18, O2 sat 97% on room air, blood pressure 132/72. Her lungs were clear. Heart, regular rate. Left foot, fifth toe, has improved. The sutures have been removed. There is no drainage. At the dorsum of the foot, the wound looks better. The swellin g is slowly resolving. The wound bed looks better. It is a little more dry. Still a little dark ye llowish base, but improved. The surrounding skin looks better. There is no redness. Skin still has a little light purplish discoloration, but overall looks improved. ASSESSMENT: 1. Cellulitis of the left foot. A. Postop infection following a bunion repair on 07/04/2018 with a simultaneous amputation of the le ft fifth toe following a traumatic crush injury to the tip of the toe with gangrenous and infection c johnson. B. Possible deep space involvement necessitating a long course of IV vancomycin. C. Cultures from the left fifth toe grew methicillin-resistant Staphylococcus aureus and Streptococc us epidermidis. D. Scheduled for 6-week course of IV vancomycin, oral ciprofloxacin and Flagyl. E. Improved as of 07/29/2018. 2. Status post bunion repair with hardware on 07/04/2018. A. Complicated by postop cellulitis. B. Wound incision has broke down, but anticipate healing by secondary intention. 1. Wound looks better as of 07/29/2018. C. Remains on IV vancomycin and oral Cipro and metronidazole. 3. Status post amputation of the left fifth toe at the PIP joint, following a crush injury complicat ed by infection and gangrenous change. A. Improving. 4. History of diabetes mellitus. A. Hemoglobin A1c 5.5 on 06/21/2018. B. Controlled with no medications since marked weight reduction. 5. Peripheral artery disease. A. Status post stents placed in the iliac vessels bilateral on 07/21/2018. B. Following stent placement, excellent pulses in both feet as of 07/23/2018. 6. Hyperlipidemia. 7. Cigarette abuse. A. Ceased smoking as of 07/12/2018. 8. Obesity. 9. Venous insufficiency of the lower extremities. A. Complicated by post-phlebitic syndrome of the right leg. 10. Depression, controlled. 11. Chronic low back pain secondary to lumbar spondylosis. A. Controlled as of 07/29/2018. PLAN: Continue present care. We will continue the IV vancomycin and the oral Cipro and metronidazol e. We will continue the Santyl ointment to the base of the wound covered with a gauze and then just a small gauze wrap to hold in place. We will stop using the Mepilex.
--- NOTE | 2018-07-31 10:05 | PRG ---
DATE OF SERVICE: 07/31/2018 SUBJECTIVE: The patient said that she is feeling better. Her foot is feeling better. She is worrie d. She has the chronic low back pain and is due to have a surgical procedure on that low back, but i s worried about this because of potential infection. The patient will not have anything done until i nfection on the foot completely clear and then she is going to wait and kind of see how she is doing with her back. If she persists with the problems with her back and it is not manageable, then she wi ll need to re talk to her neurosurgeon about her back surgery. OBJECTIVE: GENERAL: The patient is sitting in her bed. She is alert, looks very comfortable, in no distress. VITAL SIGNS: Her temperature is 97, pulse 76, respirations 20, O2 saturation 97% on room air, blood pressure 133/60. LUNGS: Clear. HEART: Regular rate. EXTREMITIES: Her left foot looks better. The fifth toe is healing. The sutures were all out. The swelling in the foot is still a little bit in the first MP joint. Overall, the swelling has resolved . Still a little light purplish discoloration around the wound. The bed of the wound looks better. The blackish eschar has resolved. There is still a little mucousy yellowish base. Overall though, the wound looks better. LABORATORY DATA: Her lab today shows an H and H of 12.4 and 36.5 and 36.5, white blood cell count 46 00 with 72% segs, 16% lymphocytes and platelet count of 227,000. Sed rate down to 33. Sodium 142, p otassium 4.2, BUN 17, creatinine 0.78. GFR 75, glucose 99. Her vancomycin trough level is 20.5, whi ch is therapeutic. ASSESSMENT: 1. Cellulitis of the left foot. A. Postop infection following a bunion repair on 07/04/2018 with a simultaneous amputation of the le ft fifth toe following a traumatic crush injury to the tip of the toe with gangrenous and infection c johnson. B. Possible deep space involvement necessitating a long course of IV vancomycin. C. Cultures from the left fifth toe grew methicillin-resistant Staphylococcus aureus and Streptococc us epidermidis. D. Scheduled for 6-week course of IV vancomycin, oral ciprofloxacin and Flagyl. E. Improved as of 07/31/2018 with a sed rate down to 33. 2. Status post bunion repair with hardware on 07/04/2018. A. Complicated by postop cellulitis. B. Wound incision has broke down, but anticipate healing by secondary intention. 1. Wound improving. 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 C. Remains on IV vancomycin and oral Cipro and metronidazole. 3. Status post amputation of the left fifth toe at the PIP joint, following a crush injury complicat ed by infection and gangrenous change. A. Improving. 4. History of diabetes mellitus. A. Hemoglobin A1c 5.5 on 06/21/2018. B. Controlled with no medications since marked weight reduction. 5. Peripheral artery disease. A. Status post stents placed in the iliac vessels bilateral on 07/21/2018. B. Following stent placement, excellent pulses in both feet as of 07/23/2018. 6. Hyperlipidemia. 7. Cigarette abuse. A. Ceased smoking as of 07/12/2018. 8. Obesity. 9. Venous insufficiency of the lower extremities. A. Complicated by post-phlebitic syndrome of the right leg. 10. Depression, controlled. 11. Chronic low back pain secondary to lumbar spondylosis. A. Controlled as of 07/28/2018. B. Due to have surgery on her low back in the future. PLAN: Continue present care. Continue antibiotics. Continue present wound care. Any surgery on he r back will have to be put off until her infection in her foot is completely resolved. We will reduc e her NicoDerm patch to 14.
[2018-07-31] MEDS: Pravastatin Sodium 20 MG TAB PO SCH (21:40)
[2018-08-01] MEDS: Ciprofloxacin 500 MG TAB PO SCH ×2 (06:02→20:06)
[2018-08-01] MEDS: Clopidogrel Bisulfate 75 MG TAB PO SCH (08:43)
[2018-08-01] MEDS: Aspirin 81 mg Enteric Coated Tablet PO SCH (08:43)
[2018-08-01] MEDS: Enoxaparin Sodium 40 MG/0.4 ML SYRINGE SC SCH (08:44)
[2018-08-01] MEDS: metroNIDAZOLE 250 MG TAB PO SCH ×3 (08:44→20:06)
[2018-08-01] MEDS: Nicotine 7 MG PATCH TOP SCH (08:46)
[2018-08-01] MEDS: Vancomycin HCl 500 MG in Sodium Chloride 0.9% 100 ML IVPB SCH ×2 (08:47→20:05)
[2018-08-01] MEDS: Vancomycin HCl 1 GM in Sodium Chloride 0.9% 250 ML 250 ML IVPB SCH ×2 (08:47→20:06)
[2018-08-01] MEDS: Collagenase 250 UNITS/GM Ointment 30 GM TUBE TOP SCH (08:52)
--- NOTE | 2018-08-01 14:34 | PRG ---
DATE OF SERVICE: 08/01/2018 SUBJECTIVE: The patient says her foot is feeling better. She has had no complaints. OBJECTIVE: The patient is alert, talkative, appears very comfortable, in no distress. Temp 97.1, pu lse 77, respirations 97, blood pressure 141/74. Lungs are clear. Heart, regular rate. Left foot lo oks better. The skin on the dorsum of the foot around the wound is a little purplish discolored. Th ere is no increased heat. There is no drainage. The wound bed is a little darker today, but the wou nd size is a little smaller. Overall, the foot looks better. ASSESSMENT: 1. Cellulitis of the left foot. A. Postop infection following a bunion repair on 07/04/2018 with a simultaneous amputation of the le ft fifth toe following a traumatic crush injury to the tip of the toe with gangrenous and infection c johnson. B. Possible deep space involvement necessitating a long course of IV vancomycin. C. Cultures from the left fifth toe grew methicillin-resistant Staphylococcus aureus and Streptococc us epidermidis. D. Scheduled for 6-week course of IV vancomycin, oral ciprofloxacin and Flagyl. E. Improved as of 08/01/2018. 2. Status post bunion repair with hardware on 07/04/2018. A. Complicated by postop cellulitis. B. Wound incision has broke down, but anticipate healing by secondary intention. 1. Wound improved as of 07/31/2018. C. Remains on IV vancomycin and oral Cipro and metronidazole. 3. Status post amputation of the left fifth toe at the PIP joint, following a crush injury complicat ed by infection and gangrenous change. A. Improving. 4. History of diabetes mellitus. A. Hemoglobin A1c 5.5 on 06/21/2018. B. Controlled with no medications since marked weight reduction. 5. Peripheral artery disease. A. Status post stents placed in the iliac vessels bilateral on 07/21/2018. B. Following stent placement, excellent pulses in both feet as of 07/23/2018. 6. Hyperlipidemia. 7. Cigarette abuse. A. Ceased smoking as of 07/12/2018. 8. Obesity. 9. Venous insufficiency of the lower extremities. A. Complicated by post-phlebitic syndrome of the right leg. 10. Depression, controlled. 11. Chronic low back pain secondary to lumbar spondylosis. A. Controlled as of 07/28/2018. B. Due to have surgery on her low back in the future. PLAN: Continue present care. Will continue the wound care to the foot by cleansing with saline, zulema lying Santyl ointment covered with an Adaptic and gauze, and wrapped daily.
[2018-08-01] MEDS: Pravastatin Sodium 20 MG TAB PO SCH (20:06)
[2018-08-02] MEDS: Ciprofloxacin 500 MG TAB PO SCH ×2 (05:31→20:24)
[2018-08-02] MEDS: metroNIDAZOLE 250 MG TAB PO SCH ×3 (08:47→20:24)
[2018-08-02] MEDS: Nicotine 7 MG PATCH TOP SCH (08:47)
[2018-08-02] MEDS: Aspirin 81 mg Enteric Coated Tablet PO SCH (08:47)
[2018-08-02] MEDS: Clopidogrel Bisulfate 75 MG TAB PO SCH (08:47)
[2018-08-02] MEDS: Enoxaparin Sodium 40 MG/0.4 ML SYRINGE SC SCH (08:47)
[2018-08-02] MEDS: Vancomycin HCl 500 MG in Sodium Chloride 0.9% 100 ML IVPB SCH ×2 (08:48→20:23)
[2018-08-02] MEDS: Vancomycin HCl 1 GM in Sodium Chloride 0.9% 250 ML 250 ML IVPB SCH ×2 (08:48→20:23)
[2018-08-02] MEDS: Collagenase 250 UNITS/GM Ointment 30 GM TUBE TOP SCH (08:48)
--- NOTE | 2018-08-02 12:33 | PRG ---
DATE OF SERVICE: 08/02/2018 SUBJECTIVE: The patient said she is feeling good. She has no complaints. She remains off the cigar ettes. Committed not to going back. Her patch has been reduced to a 14 mg nicotine patch. The juliet ent said her foot is feeling better. She is walking better. OBJECTIVE: The patient is alert, looks very comfortable in no distress. Her temperature is 97.4, pu lse 70, respirations 20, O2 saturation 97%, blood pressure 145/65. Lungs are clear. Heart, regular rate. Left foot looks much better. The swelling is almost totally resolved except for some minor sw elling in the first MP joint. The wound looks better. There is still some yellowish material at the base and some brown and dried eschar over a small portion of the wound. Overall it looks better. T he surrounding tissue has a little purplish discoloration. The edges are ingrowing and the wound ove rall is a little smaller. The wound looks better. The left fifth toe also is improving. ASSESSMENT: 1. Cellulitis of the left foot. A. Postop infection following a bunion repair on 07/04/2018 with a simultaneous amputation of the le ft fifth toe following a traumatic crush injury to the tip of the toe with gangrenous and infection c johnson. B. Possible deep space involvement necessitating a long course of IV vancomycin. C. Cultures from the left fifth toe grew methicillin-resistant Staphylococcus aureus and Streptococc us epidermidis. D. Scheduled for 6-week course of IV vancomycin, oral ciprofloxacin and Flagyl. E. Improved as of 08/02/2018. 2. Status post bunion repair with hardware on 07/04/2018. A. Complicated by postop cellulitis. B. Wound incision has broke down, but anticipate healing by secondary intention. 1. Wound improved as of 08/02/2018. C. Remains on IV vancomycin and oral Cipro and metronidazole. 3. Status post amputation of the left fifth toe at the PIP joint, following a crush injury complicat ed by infection and gangrenous change. A. Improving. 4. History of diabetes mellitus. A. Hemoglobin A1c 5.5 on 06/21/2018. B. Controlled with no medications since marked weight reduction. 5. Peripheral artery disease. A. Status post stents placed in the iliac vessels bilateral on 07/21/2018. B. Following stent placement, excellent pulses in both feet as of 07/23/2018. 6. Hyperlipidemia. 7. Cigarette abuse. A. Ceased smoking as of 07/12/2018. 8. Obesity. 9. Venous insufficiency of the lower extremities. A. Complicated by post-phlebitic syndrome of the right leg. B. Controlled as of 08/02/2018. 10. Depression, controlled. 11. Chronic low back pain secondary to lumbar spondylosis. A. Controlled as of 08/02/2018. B. Due to have surgery on her low back in the future. PLAN: Continue present care. Continue the IV vancomycin and oral Cipro and metronidazole.
[2018-08-02] MEDS: Pravastatin Sodium 20 MG TAB PO SCH (20:25)
[2018-08-03] MEDS: Ciprofloxacin 500 MG TAB PO SCH ×2 (05:43→21:01)
[2018-08-03] MEDS: Collagenase 250 UNITS/GM Ointment 30 GM TUBE TOP SCH (08:37)
[2018-08-03] MEDS: Enoxaparin Sodium 40 MG/0.4 ML SYRINGE SC SCH (08:37)
[2018-08-03] MEDS: Nicotine 7 MG PATCH TOP SCH (08:38)
[2018-08-03] MEDS: metroNIDAZOLE 250 MG TAB PO SCH ×3 (08:38→21:01)
[2018-08-03] MEDS: Clopidogrel Bisulfate 75 MG TAB PO SCH (08:38)
[2018-08-03] MEDS: Aspirin 81 mg Enteric Coated Tablet PO SCH (08:38)
[2018-08-03] MEDS: Vancomycin HCl 1 GM in Sodium Chloride 0.9% 250 ML 250 ML IVPB SCH ×2 (08:39→21:00)
[2018-08-03] MEDS: Vancomycin HCl 500 MG in Sodium Chloride 0.9% 100 ML IVPB SCH ×2 (08:39→21:00)
--- NOTE | 2018-08-03 09:22 | PRG ---
DATE OF SERVICE: 08/03/2018 SUBJECTIVE: The patient thinks she is doing better. She said her foot feels better. The patient sa id she is noticing that she gets a little itchy around her neck and scalp with the vancomycin, but th en in a little while this goes away. OBJECTIVE: The patient is alert and appears in no distress. Her vital signs show a temperature of 9 7.2, pulse 89, respirations 20, O2 sat 95% on room air, blood pressure 121/67. Her lungs are clear. Heart, regular rate. Left foot looks better. There are still some enlargement in the first MP join t, but overall smaller than what it was up from admission. The wound on the dorsum of the foot looks better. The base of the wound is primarily just a yellowish little mucousy material. There is no m ore of the dark brown/blackish eschar present. The wound edges look excellent. Overall, the wound i s getting gradually a little smaller. The immediate surrounding skin just has a little mild purplish discoloration, but this is getting less. Overall, the foot and the wound looks better. The fifth t oe is healing. There is no redness. ASSESSMENT: 1. Cellulitis of the left foot. A. Postop infection following a bunion repair on 07/04/2018 with a simultaneous amputation of the le ft fifth toe following a traumatic crush injury to the tip of the toe with gangrenous and infection c johnson. B. Possible deep space involvement necessitating a long course of IV vancomycin. C. Cultures from the left fifth toe grew methicillin-resistant Staphylococcus aureus and Streptococc us epidermidis. D. Scheduled for 6-week course of IV vancomycin, oral ciprofloxacin and Flagyl. E. Improved as of 08/03/2018. 2. Status post bunion repair with hardware on 07/04/2018. A. Complicated by postop cellulitis. B. Wound incision has broke down, but anticipate healing by secondary intention. 1. Wound improved as of 08/03/2018. C. Remains on IV vancomycin and oral Cipro and metronidazole. 3. Status post amputation of the left fifth toe at the PIP joint, following a crush injury complicat ed by infection and gangrenous change. A. Improving. 4. History of diabetes mellitus. A. Hemoglobin A1c 5.5 on 06/21/2018. B. Controlled with no medications since marked weight reduction. 5. Peripheral artery disease. A. Status post stents placed in the iliac vessels bilateral on 07/21/2018. B. Following stent placement, excellent pulses in both feet as of 07/23/2018. 6. Hyperlipidemia. 7. Cigarette abuse. A. Ceased smoking as of 07/12/2018. 8. Obesity. 9. Venous insufficiency of the lower extremities. A. Complicated by post-phlebitic syndrome of the right leg. B. Controlled as of 08/02/2018. 10. Depression, controlled. 11. Chronic low back pain secondary to lumbar spondylosis. A. Controlled as of 08/02/2018. B. Due to have surgery on her low back in the future. PLAN: The patient is doing very well. We will continue present wound care. Continue the IV antibio tics and the oral Cipro and metronidazole.
[2018-08-03] MEDS: diphenhydrAMINE 25 MG CAP PO PRN (21:01)
[2018-08-03] MEDS: Pravastatin Sodium 20 MG TAB PO SCH (21:01)
[2018-08-04] MEDS: Ciprofloxacin 500 MG TAB PO SCH ×2 (05:56→20:55)
[2018-08-04] MEDS: Aspirin 81 mg Enteric Coated Tablet PO SCH (09:37)
[2018-08-04] MEDS: Vancomycin HCl 500 MG in Sodium Chloride 0.9% 100 ML IVPB SCH ×2 (09:38→20:56)
[2018-08-04] MEDS: metroNIDAZOLE 250 MG TAB PO SCH ×3 (09:38→20:55)
[2018-08-04] MEDS: Enoxaparin Sodium 40 MG/0.4 ML SYRINGE SC SCH (09:38)
[2018-08-04] MEDS: Clopidogrel Bisulfate 75 MG TAB PO SCH (09:38)
[2018-08-04] MEDS: Collagenase 250 UNITS/GM Ointment 30 GM TUBE TOP SCH (09:38)
[2018-08-04] MEDS: Vancomycin HCl 1 GM in Sodium Chloride 0.9% 250 ML 250 ML IVPB SCH ×2 (09:39→20:56)
[2018-08-04] MEDS: Nicotine 7 MG PATCH TOP SCH (09:50)
--- NOTE | 2018-08-04 11:41 | PRG ---
DATE OF SERVICE: 08/04/2018 SUBJECTIVE: The patient said she is feeling good. She had some itching yesterday, but took a Benadr yl 25 mg with resolution of her symptoms. OBJECTIVE: The patient is alert, appears very comfortable in no distress. Her vital signs show a te mperature of 98, pulse 74, respirations 22, O2 sat 96% on room air, blood pressure 128/75. Her lungs are clear. Heart, regular rate. Her left foot looks better. There is a little slight purplish dis coloration immediately around the wound. The wound is a little smaller. There is still a yellow muc ousy appearance to the base, but there are few islands of granulation tissue that can be seen that is peeping through the yellow base. Overall, the wound looks much better. The left fifth toe is heali ng. ASSESSMENT: 1. Cellulitis of the left foot. A. Postop infection following a bunion repair on 07/04/2018 with a simultaneous amputation of the le ft fifth toe following a traumatic crush injury to the tip of the toe with gangrenous and infection c johnson. B. Possible deep space involvement necessitating a long course of IV vancomycin. C. Cultures from the left fifth toe grew methicillin-resistant Staphylococcus aureus and Streptococc us epidermidis. D. Scheduled for 6-week course of IV vancomycin, oral ciprofloxacin and Flagyl. E. Improved as of 08/04/2018. 2. Status post bunion repair with hardware on 07/04/2018. A. Complicated by postop cellulitis. B. Wound incision has broke down, but anticipate healing by secondary intention. 1. Wound improved as of 08/04/2018. C. Remains on IV vancomycin and oral Cipro and metronidazole. 3. Status post amputation of the left fifth toe at the PIP joint, following a crush injury complicat ed by infection and gangrenous change. A. Improving. 4. History of diabetes mellitus. A. Hemoglobin A1c 5.5 on 06/21/2018. B. Controlled with no medications since marked weight reduction. 5. Peripheral artery disease. A. Status post stents placed in the iliac vessels bilateral on 07/21/2018. B. Following stent placement, excellent pulses in both feet as of 07/23/2018. 6. Hyperlipidemia. 7. Cigarette abuse. A. Ceased smoking as of 07/12/2018. 8. Obesity. 9. Venous insufficiency of the lower extremities. A. Complicated by post-phlebitic syndrome of the right leg. B. Controlled as of 08/02/2018. 10. Depression, controlled. 11. Chronic low back pain secondary to lumbar spondylosis. A. Controlled as of 08/04/2018. B. Due to have surgery on her low back in the future. PLAN: Continue present care. Continue present wound care.
[2018-08-04] MEDS: Pravastatin Sodium 20 MG TAB PO SCH (20:55)
[2018-08-04] MEDS: diphenhydrAMINE 25 MG CAP PO PRN (21:02)
[2018-08-05] MEDS: Ciprofloxacin 500 MG TAB PO SCH ×2 (05:44→20:48)
[2018-08-05] MEDS: Aspirin 81 mg Enteric Coated Tablet PO SCH (09:43)
[2018-08-05] MEDS: Nicotine 7 MG PATCH TOP SCH (09:43)
[2018-08-05] MEDS: metroNIDAZOLE 250 MG TAB PO SCH ×3 (09:43→20:49)
[2018-08-05] MEDS: Clopidogrel Bisulfate 75 MG TAB PO SCH (09:43)
[2018-08-05] MEDS: Enoxaparin Sodium 40 MG/0.4 ML SYRINGE SC SCH (09:43)
[2018-08-05] MEDS: Collagenase 250 UNITS/GM Ointment 30 GM TUBE TOP SCH (09:44)
[2018-08-05] MEDS: Vancomycin HCl 1 GM in Sodium Chloride 0.9% 250 ML 250 ML IVPB SCH ×2 (09:44→20:52)
[2018-08-05] MEDS: Vancomycin HCl 500 MG in Sodium Chloride 0.9% 100 ML IVPB SCH ×2 (09:44→20:53)
[2018-08-05] MEDS: diphenhydrAMINE 25 MG CAP PO PRN (20:48)
[2018-08-05] MEDS: Pravastatin Sodium 20 MG TAB PO SCH (20:49)
[2018-08-06] MEDS: Ciprofloxacin 500 MG TAB PO SCH ×2 (06:16→20:46)
[2018-08-06] MEDS: Vancomycin HCl 1 GM in Sodium Chloride 0.9% 250 ML 250 ML IVPB SCH ×2 (09:14→20:47)
[2018-08-06] MEDS: Vancomycin HCl 500 MG in Sodium Chloride 0.9% 100 ML IVPB SCH ×2 (09:15→20:48)
[2018-08-06] MEDS: Enoxaparin Sodium 40 MG/0.4 ML SYRINGE SC SCH (09:19)
[2018-08-06] MEDS: Nicotine 7 MG PATCH TOP SCH (09:20)
[2018-08-06] MEDS: Aspirin 81 mg Enteric Coated Tablet PO SCH (09:20)
[2018-08-06] MEDS: metroNIDAZOLE 250 MG TAB PO SCH ×3 (09:20→20:46)
[2018-08-06] MEDS: Clopidogrel Bisulfate 75 MG TAB PO SCH (09:20)
[2018-08-06] MEDS: Collagenase 250 UNITS/GM Ointment 30 GM TUBE TOP SCH (10:59)
[2018-08-06 17:50] LABS: Bilirubin Negative (Negative); Blood, Urine Moderate (Negative); Clarity Hazy (Clear); Glucose, Urine (Dipstick) Negative (Negative); Leukocyte Negative (Negative); Nitrite Negative (Negative); Protein, Urine (Dipstick) Negative (Neg-Trace); Specific Gravity, Urine 1.006 (1.002-1.036); Urobilinogen 0.2 mg/dL (0.2-1.0)
[2018-08-06 17:51] LABS: Bacteria/HPF Rare-Few HPF (None Seen); RBC/HPF 0-3 HPF (0-3); WBC/HPF 0-3 HPF (0-3)
[2018-08-06] MEDS: Clotrimazole 1% Cream 15 GM TUBE TOP SCH (20:46)
[2018-08-06] MEDS: Pravastatin Sodium 20 MG TAB PO SCH (20:46)
[2018-08-06] MEDS: diphenhydrAMINE 25 MG CAP PO PRN (20:47)
[2018-08-07] MEDS: Ciprofloxacin 500 MG TAB PO SCH ×2 (05:40→20:56)
[2018-08-07 08:17] LABS: Vancomycin, Trough 19.6 ug/mL
[2018-08-07] MEDS: Enoxaparin Sodium 40 MG/0.4 ML SYRINGE SC SCH (09:16)
[2018-08-07] MEDS: Fluconazole 100 MG TAB PO SCH (09:16)
[2018-08-07] MEDS: metroNIDAZOLE 250 MG TAB PO SCH ×3 (09:16→20:56)
[2018-08-07] MEDS: Clopidogrel Bisulfate 75 MG TAB PO SCH (09:16)
[2018-08-07] MEDS: Aspirin 81 mg Enteric Coated Tablet PO SCH (09:16)
[2018-08-07] MEDS: Clotrimazole 1% Cream 15 GM TUBE TOP SCH ×2 (09:16→20:57)
[2018-08-07] MEDS: Vancomycin HCl 500 MG in Sodium Chloride 0.9% 100 ML IVPB SCH ×2 (09:17→20:57)
[2018-08-07] MEDS: Nicotine 7 MG PATCH TOP SCH (09:17)
[2018-08-07] MEDS: Vancomycin HCl 1 GM in Sodium Chloride 0.9% 250 ML 250 ML IVPB SCH ×2 (09:17→20:57)
[2018-08-07] MEDS: Collagenase 250 UNITS/GM Ointment 30 GM TUBE TOP SCH (09:18)
--- NOTE | 2018-08-07 11:40 | PRG ---
DATE OF SERVICE: 08/05/2018 SUBJECTIVE: The patient said she is feeling better. Her foot is feeling better. She had no complai nts. OBJECTIVE: The patient is alert, appears very comfortable and in no distress. Her vital signs show a temperature of 97.5, pulse 76, respirations 18, O2 sat 96%, blood pressure 146/86. Her lungs are c lear. Heart, regular rate. Left foot looks better. The first MP joint is a little bit enlarged but overall much smaller. There is no redness. There is a little light purplish discoloration immediat catie around the wound on the dorsum of the foot. The wound itself looks better. There is still a lit tle yellowish base, but there is more little areas of granulation tissue that is peaking through. Ov erall, the wound looks better and a little smaller. Her FBS this morning was 105. ASSESSMENT: 1. Cellulitis of the left foot. A. Postop infection following a bunion repair on 07/04/2018 with a simultaneous amputation of the le ft fifth toe following a traumatic crush injury to the tip of the toe with gangrenous and infection c johnson. B. Possible deep space involvement necessitating a long course of IV vancomycin. C. Cultures from the left fifth toe grew methicillin-resistant Staphylococcus aureus and Streptococc us epidermidis. D. Scheduled for 6-week course of IV vancomycin, oral ciprofloxacin and Flagyl. E. Improved as of 08/05/2018. 2. Status post bunion repair with hardware on 07/04/2018. A. Complicated by postop cellulitis. B. Wound incision has broke down, but anticipate healing by secondary intention. 1. Wound improved as of 08/05/2018. C. Remains on IV vancomycin and oral Cipro and metronidazole. 3. Status post amputation of the left fifth toe at the PIP joint, following a crush injury complicat ed by infection and gangrenous change. A. Improving. 4. History of diabetes mellitus. A. Hemoglobin A1c 5.5 on 06/21/2018. B. Controlled with no medications since marked weight reduction. 5. Peripheral artery disease. A. Status post stents placed in the iliac vessels bilateral on 07/21/2018. B. Following stent placement, excellent pulses in both feet as of 07/23/2018. 6. Hyperlipidemia. 7. Cigarette abuse. A. Ceased smoking as of 07/12/2018. 8. Obesity. 9. Venous insufficiency of the lower extremities. A. Complicated by post-phlebitic syndrome of the right leg. B. Controlled as of 08/05/2018. 10. Depression, controlled. 11. Chronic low back pain secondary to lumbar spondylosis. A. Controlled as of 08/05/2018. B. Due to have surgery on her low back in the future. PLAN: The patient continues to improve. Continue present wound care. Continue the IV antibiotics a nd the oral antibiotics. Continue PT and OT.
--- NOTE | 2018-08-07 11:41 | PRG ---
DATE OF SERVICE: 08/07/2018 SUBJECTIVE: The patient said she is feeling better. She did develop a little itching and a little s light burning with urination. She was started on clotrimazole cream which has helped. Urinalysis sh owed negative nitrite, 0-3 WBC's, 4-6 epithelial cells. OBJECTIVE: The patient is sitting up in bed. She is alert, looks very comfortable and in no distres s. Her vital signs show a temperature of 97.1, pulse 67, respirations 18, O2 sat 97% on room air, bl ood pressure 130/76. Lungs were clear. Heart, regular rate. Her left foot looks better. There is still just a little swelling in the first MP joint, but overall much smaller than on admission. The wound on the dorsum of the foot looks better. It is a little smaller in its width and length, it sti ll has a little yellowish mucoid base on the wound, but this is smaller. There is further developmen t of granulation tissue at the skin edge of the wound and there were some islands of epithelial cells that are peaking through. ASSESSMENT: 1. Cellulitis of the left foot. A. Postop infection following a bunion repair on 07/04/2018 with a simultaneous amputation of the le ft fifth toe following a traumatic crush injury to the tip of the toe with gangrenous and infection c johnson. B. Possible deep space involvement necessitating a long course of IV vancomycin. C. Cultures from the left fifth toe grew methicillin-resistant Staphylococcus aureus and Streptococc us epidermidis. D. Scheduled for 6-week course of IV vancomycin, oral ciprofloxacin and Flagyl. E. Improved as of 08/07/2018. 2. Status post bunion repair with hardware on 07/04/2018. A. Complicated by postop cellulitis. B. Wound incision has broke down, but anticipate healing by secondary intention. 1. Wound improved as of 08/07/2018. C. Remains on IV vancomycin and oral Cipro and metronidazole. 3. Status post amputation of the left fifth toe at the PIP joint, following a crush injury complicat ed by infection and gangrenous change. A. Improving. 4. History of diabetes mellitus. A. Hemoglobin A1c 5.5 on 06/21/2018. B. Controlled with no medications since marked weight reduction. 5. Peripheral artery disease. A. Status post stents placed in the iliac vessels bilateral on 07/21/2018. B. Following stent placement, excellent pulses in both feet as of 07/23/2018. 6. Hyperlipidemia. 7. Cigarette abuse. A. Ceased smoking as of 07/12/2018. 8. Obesity. 9. Venous insufficiency of the lower extremities. A. Complicated by post-phlebitic syndrome of the right leg. B. Controlled as of 08/02/2018. 10. Depression, controlled. 11. Chronic low back pain secondary to lumbar spondylosis. A. Controlled as of 08/04/2018. B. Due to have surgery on her low back in the future. 12. Vulvovaginitis. PLAN: Continue the vancomycin and the oral Cipro and metronidazole. We will continue wound care. A fter cleansing the wound apply the Santyl and then a gauze in the wound covered with a 4 x 4 and then a gauze wrap. We will place the patient on Diflucan 100 mg daily for 7 days.
[2018-08-07] MEDS: diphenhydrAMINE 25 MG CAP PO PRN (20:56)
[2018-08-07] MEDS: Pravastatin Sodium 20 MG TAB PO SCH (20:56)
[2018-08-08] MEDS: Ciprofloxacin 500 MG TAB PO SCH ×2 (05:45→20:17)
--- NOTE | 2018-08-08 08:10 | PRG ---
DATE OF SERVICE: 08/08/2018 SUBJECTIVE: The patient said she is doing fine. The dressing on her left foot was changed early thi s morning and she reports that it continues to improve. OBJECTIVE: The patient is alert, appears very comfortable, in no distress. Her temp 97.8, pulse 77, respirations 18, O2 sat 96% on room air, blood pressure 126/75. Her lungs were clear. Heart, regul ar rate. ASSESSMENT AND PLAN: Left foot wound was reported as gradually improving from the change this blayne lock I will look at the wound myself tomorrow. The patient's vancomycin trough level on 08/07/2018 wa s 19.6. We will check a CBC, CMP, sed rate, CRP in the morning. The patient is due to see Dr. Mandujano , Infectious Disease physician, this afternoon. Continue present wound care. Continue PT.
[2018-08-08] MEDS: Fluconazole 100 MG TAB PO SCH (08:13)
[2018-08-08] MEDS: Aspirin 81 mg Enteric Coated Tablet PO SCH (08:13)
[2018-08-08] MEDS: Clopidogrel Bisulfate 75 MG TAB PO SCH (08:13)
[2018-08-08] MEDS: metroNIDAZOLE 250 MG TAB PO SCH ×3 (08:13→20:17)
[2018-08-08] MEDS: Enoxaparin Sodium 40 MG/0.4 ML SYRINGE SC SCH (08:14)
[2018-08-08] MEDS: Collagenase 250 UNITS/GM Ointment 30 GM TUBE TOP SCH (08:14)
[2018-08-08] MEDS: Nicotine 7 MG PATCH TOP SCH (08:14)
[2018-08-08] MEDS: Clotrimazole 1% Cream 15 GM TUBE TOP SCH ×2 (08:14→20:18)
[2018-08-08] MEDS: Vancomycin HCl 1 GM in Sodium Chloride 0.9% 250 ML 250 ML IVPB SCH ×2 (08:15→20:18)
[2018-08-08] MEDS: Vancomycin HCl 500 MG in Sodium Chloride 0.9% 100 ML IVPB SCH ×2 (08:15→20:19)
[2018-08-08 08:38] LABS: ALT (SGPT) 43 U/L (8-55); AST (SGOT) 22 U/L (5-34); Albumin 4.2 g/dL (3.4-4.8); Alkaline Phosphatase 75 U/L (40-150); Anion Gap 14 mmol/L (10-20); BUN (Urea Nitrogen) 15 mg/dL (9.8-20.1); Bilirubin, Total 0.3 mg/dL (0.2-1.2); Calc. Creatinine Clearance 112 mL/min (70-130); Calcium 9.9 mg/dL (7.8-10.44); Carbon Dioxide 22 mmol/L (23-31); Chloride 106 mmol/L (98-107); Estimated GFR-MDRD 68; Globulin 2.9 g/dL (2.4-3.5); Glucose 105 mg/dL (80-115); Potassium 4.6 mmol/L (3.5-5.1); Protein, Total 7.1 g/dL (6.0-8.3); Sodium 137 mmol/L (136-145)
[2018-08-08] MEDS ORDERED: Sodium Chloride Irrig Solution 250 ML BOT ONE (10:35)
[2018-08-08] MEDS: diphenhydrAMINE 25 MG CAP PO PRN (20:44)
[2018-08-08] MEDS: Pravastatin Sodium 20 MG TAB PO SCH (20:57)
[2018-08-09] MEDS: Ciprofloxacin 500 MG TAB PO SCH ×2 (05:53→20:12)
[2018-08-09 06:30] LABS: %Basophils 1.5 % (0.0-1.0); %Eosinophils 5.9 % (0.0-10.0); %Lymphocytes 19.1 % (21.0-51.0); %Monocytes 15.2 % (0.0-10.0); %Neutrophils 52.3 % (42.0-75.0); Mean Corpuscular HGB CONC 31.9 g/dL (32.0-36.0); Mean Corpuscular Hemoglobin 31.6 pg (27.0-31.0); Mean Platelet Volume 7.8 fL (7.4-10.4); Platelet Count 200 thou/uL (130-400); RBC Distribution Width 13.7 % (11.5-14.5); White Blood Cell (WBC) Count 4.2 thou/uL (4.8-10.8)
[2018-08-09 06:31] LABS: #Basophils 0.1 thou/uL (0.0-0.2); #Eosinphils 0.2 thou/uL (0.0-0.7); #Lymphocytes 0.8 thou/uL (1.20-3.40); #Monocytes 0.6 thou/uL (0.11-0.59); #Neutrophils 2.4 thou/uL (1.40-6.50)
[2018-08-09] MEDS: metroNIDAZOLE 250 MG TAB PO SCH ×3 (08:43→20:12)
[2018-08-09] MEDS: Fluconazole 100 MG TAB PO SCH (08:43)
[2018-08-09] MEDS: Clopidogrel Bisulfate 75 MG TAB PO SCH (08:43)
[2018-08-09] MEDS: Clotrimazole 1% Cream 15 GM TUBE TOP SCH ×2 (08:43→20:15)
[2018-08-09] MEDS: Aspirin 81 mg Enteric Coated Tablet PO SCH (08:43)
[2018-08-09] MEDS: Nicotine 7 MG PATCH TOP SCH (08:44)
[2018-08-09] MEDS: Enoxaparin Sodium 40 MG/0.4 ML SYRINGE SC SCH (08:44)
[2018-08-09] MEDS: Collagenase 250 UNITS/GM Ointment 30 GM TUBE TOP SCH (08:45)
[2018-08-09] MEDS: Vancomycin HCl 500 MG in Sodium Chloride 0.9% 100 ML IVPB SCH ×2 (10:25→20:16)
[2018-08-09] MEDS: Vancomycin HCl 1 GM in Sodium Chloride 0.9% 250 ML 250 ML IVPB SCH ×2 (10:25→20:15)
--- NOTE | 2018-08-09 11:11 | PRG ---
DATE OF SERVICE: 08/09/2018 SUBJECTIVE: The patient said she is doing fine. She did go see Dr. Mandujano yesterday. He has sent ba ck orders indicating that she needs to stay on the vancomycin an additional week. This will be finjennifer stringer on 08/20/2018 and then she will be placed on oral minocycline 100 mg b.i.d. for at least a 3 fidencio h period. He plans on seeing her back in late August, also advised weekly lab work as presently do ing. OBJECTIVE: The patient is alert, appears comfortable, in no distress. Vital signs show temperature 97.3, pulse 77, respirations 18, O2 saturation 98% on room air, blood pressure 149/72. Lungs were cl ear. Heart, regular rate. Left foot, the foot looks better. There is a little slight light purplis h discoloration of the skin immediately around the wound on the dorsum of the foot. The wound is a l ittle smaller. The peripheral edge of the wound is developing a little ream of granulation tissue an d there were some islands of granulation tissue coming through the yellowish brown base. Overall, th e wound looks better. The fifth toe is doing fine. Her lab today shows a H&H of 12 and 37.6. White cell count 4200 with 52% segs, 19% lymphocytes, and a platelet count of 200,000. The ESR is down to 28. Sodium 137, potassium 4.6, BUN 15, creatinine 0.8, GFR 68. FBS 105. ASSESSMENT: 1. Cellulitis of the left foot. A. Postop infection following a bunion repair on 07/04/2018 with a simultaneous amputation of the le ft fifth toe following a traumatic crush injury to the tip of the toe with gangrenous and infection c johnson. B. Possible deep space involvement necessitating a long course of IV vancomycin. C. Cultures from the left fifth toe grew methicillin-resistant Staphylococcus aureus and Streptococc us epidermidis. D. Scheduled for 6-week course of IV vancomycin, oral ciprofloxacin and Flagyl. E. Improved as of 08/09/2018. 2. Status post bunion repair with hardware on 07/04/2018. A. Complicated by postop cellulitis. B. Wound incision has broke down, but anticipate healing by secondary intention. 1. Wound improved as of 08/09/2018. C. Remains on IV vancomycin and oral Cipro and metronidazole. 3. Status post amputation of the left fifth toe at the PIP joint, following a crush injury complicat ed by infection and gangrenous change. A. Improving. 4. History of diabetes mellitus. A. Hemoglobin A1c 5.5 on 06/21/2018. B. Controlled with no medications since marked weight reduction. 5. Peripheral artery disease. A. Status post stents placed in the iliac vessels bilateral on 07/21/2018. B. Following stent placement, excellent pulses in both feet as of 07/23/2018. 6. Hyperlipidemia. 7. Cigarette abuse. A. Ceased smoking as of 07/12/2018. 8. Obesity. 9. Venous insufficiency of the lower extremities. A. Complicated by post-phlebitic syndrome of the right leg. B. Controlled as of 08/02/2018. 10. Depression, controlled. 11. Chronic low back pain secondary to lumbar spondylosis. A. Controlled as of 08/04/2018. B. Due to have surgery on her low back in the future. 12. Vulvovaginitis. A. Resolving as of 08/09/2018. PLAN: Dr. Mandujano has recommended a continuation of the present medications, that is the vancomycin, C ipro and metronidazole until 08/30/[address] on minocycline 100 mg b.i.d. for at least a 3 month period. Continue the present wound care and will continue weekly lab work.
[2018-08-09] MEDS: Pravastatin Sodium 20 MG TAB PO SCH (20:12)
[2018-08-09] MEDS: diphenhydrAMINE 25 MG CAP PO PRN (20:42)
[2018-08-10] MEDS: Ciprofloxacin 500 MG TAB PO SCH ×2 (05:42→20:08)
[2018-08-10] MEDS: Clotrimazole 1% Cream 15 GM TUBE TOP SCH ×2 (09:17→20:12)
[2018-08-10] MEDS: Nicotine 7 MG PATCH TOP SCH (09:17)
[2018-08-10] MEDS: metroNIDAZOLE 250 MG TAB PO SCH ×3 (09:17→20:08)
[2018-08-10] MEDS: Enoxaparin Sodium 40 MG/0.4 ML SYRINGE SC SCH (09:17)
[2018-08-10] MEDS: Clopidogrel Bisulfate 75 MG TAB PO SCH (09:17)
[2018-08-10] MEDS: Aspirin 81 mg Enteric Coated Tablet PO SCH (09:17)
[2018-08-10] MEDS: Fluconazole 100 MG TAB PO SCH (09:17)
[2018-08-10] MEDS: Vancomycin HCl 1 GM in Sodium Chloride 0.9% 250 ML 250 ML IVPB SCH ×2 (09:18→20:08)
[2018-08-10] MEDS: Collagenase 250 UNITS/GM Ointment 30 GM TUBE TOP SCH (09:18)
[2018-08-10] MEDS: Vancomycin HCl 500 MG in Sodium Chloride 0.9% 100 ML IVPB SCH ×2 (09:18→20:09)
--- NOTE | 2018-08-10 10:04 | PRG ---
DATE OF SERVICE: 08/10/2018 SUBJECTIVE: The patient said she is feeling better. She is doing good with her physical therapy. OBJECTIVE: The patient is sitting up on the side of her bed eating breakfast. She is alert, looks v neda comfortable. Her vital signs show a temperature of 97.8, pulse 66, respirations 22, O2 sat 95% o n room air, blood pressure 148/66. Lungs are clear. Heart, regular rate. Her left foot looks syl r. The wound is a little smaller. There is no surrounding redness, just a little slight purplish di scoloration. The wound bed still is a little yellowish were some deutsch portions, but the base of the w ound is getting smaller. She still has some in each end of the wound proximal distal is getting smal ler. Overall, looks better. ASSESSMENT: 1. Cellulitis of the left foot. A. Postop infection following a bunion repair on 07/04/2018 with a simultaneous amputation of the le ft fifth toe following a traumatic crush injury to the tip of the toe with gangrenous and infection c johnson. B. Possible deep space involvement necessitating a long course of IV vancomycin. C. Cultures from the left fifth toe grew methicillin-resistant Staphylococcus aureus and Streptococc us epidermidis. D. Scheduled for 6-week course of IV vancomycin, oral ciprofloxacin and Flagyl. E. Improved as of 08/10/2018. 2. Status post bunion repair with hardware on 07/04/2018. A. Complicated by postop cellulitis. B. Wound incision has broke down, but anticipate healing by secondary intention. 1. Wound improved as of 08/10/2018. C. Remains on IV vancomycin and oral Cipro and metronidazole. 3. Status post amputation of the left fifth toe at the PIP joint, following a crush injury complicat ed by infection and gangrenous change. A. Improving. 4. History of diabetes mellitus. A. Hemoglobin A1c 5.5 on 06/21/2018. B. Controlled with no medications since marked weight reduction. 5. Peripheral artery disease. A. Status post stents placed in the iliac vessels bilateral on 07/21/2018. B. Following stent placement, excellent pulses in both feet as of 07/23/2018. 6. Hyperlipidemia. 7. Cigarette abuse. A. Ceased smoking as of 07/12/2018. 8. Obesity. 9. Venous insufficiency of the lower extremities. A. Complicated by post-phlebitic syndrome of the right leg. B. Controlled as of 08/02/2018. 10. Depression, controlled. 11. Chronic low back pain secondary to lumbar spondylosis. A. Controlled as of 08/10/2018. B. Due to have surgery on her low back in the future. 12. Vulvovaginitis. A. Resolving as of 08/09/2018. PLAN: Continue IV vancomycin and oral medications. Continue present wound care. Continue PT.
[2018-08-10] MEDS: Pravastatin Sodium 20 MG TAB PO SCH (20:08)
[2018-08-10] MEDS: diphenhydrAMINE 25 MG CAP PO PRN (20:11)
[2018-08-11] MEDS: Ciprofloxacin 500 MG TAB PO SCH ×2 (05:32→20:44)
[2018-08-11] MEDS: Clopidogrel Bisulfate 75 MG TAB PO SCH (09:12)
[2018-08-11] MEDS: Vancomycin HCl 500 MG in Sodium Chloride 0.9% 100 ML IVPB SCH ×2 (09:12→20:27)
[2018-08-11] MEDS: Fluconazole 100 MG TAB PO SCH (09:12)
[2018-08-11] MEDS: metroNIDAZOLE 250 MG TAB PO SCH ×3 (09:12→20:26)
[2018-08-11] MEDS: Aspirin 81 mg Enteric Coated Tablet PO SCH (09:12)
[2018-08-11] MEDS: Vancomycin HCl 1 GM in Sodium Chloride 0.9% 250 ML 250 ML IVPB SCH ×2 (09:13→20:27)
[2018-08-11] MEDS: Nicotine 7 MG PATCH TOP SCH (09:14)
[2018-08-11] MEDS: Clotrimazole 1% Cream 15 GM TUBE TOP SCH ×2 (09:15→20:26)
[2018-08-11] MEDS: Enoxaparin Sodium 40 MG/0.4 ML SYRINGE SC SCH (09:15)
[2018-08-11] MEDS: Collagenase 250 UNITS/GM Ointment 30 GM TUBE TOP SCH (09:16)
[2018-08-11] MEDS: Pravastatin Sodium 20 MG TAB PO SCH (20:26)
[2018-08-11] MEDS: diphenhydrAMINE 25 MG CAP PO PRN (20:26)
[2018-08-12] MEDS: Ciprofloxacin 500 MG TAB PO SCH ×2 (05:26→20:53)
[2018-08-12] MEDS: Aspirin 81 mg Enteric Coated Tablet PO SCH (09:11)
[2018-08-12] MEDS: Vancomycin HCl 500 MG in Sodium Chloride 0.9% 100 ML IVPB SCH ×2 (09:11→20:54)
[2018-08-12] MEDS: Nicotine 7 MG PATCH TOP SCH (09:11)
[2018-08-12] MEDS: Clopidogrel Bisulfate 75 MG TAB PO SCH (09:11)
[2018-08-12] MEDS: Fluconazole 100 MG TAB PO SCH (09:11)
[2018-08-12] MEDS: Clotrimazole 1% Cream 15 GM TUBE TOP SCH ×2 (09:11→21:23)
[2018-08-12] MEDS: metroNIDAZOLE 250 MG TAB PO SCH ×3 (09:11→20:53)
[2018-08-12] MEDS: Collagenase 250 UNITS/GM Ointment 30 GM TUBE TOP SCH (09:12)
[2018-08-12] MEDS: Vancomycin HCl 1 GM in Sodium Chloride 0.9% 250 ML 250 ML IVPB SCH ×2 (09:12→20:55)
[2018-08-12] MEDS: Pravastatin Sodium 20 MG TAB PO SCH (20:53)
[2018-08-12] MEDS: diphenhydrAMINE 25 MG CAP PO PRN (20:53)
[2018-08-13] MEDS: Ciprofloxacin 500 MG TAB PO SCH ×2 (05:56→20:43)
[2018-08-13] MEDS: Vancomycin HCl 500 MG in Sodium Chloride 0.9% 100 ML IVPB SCH ×2 (09:04→20:41)
[2018-08-13] MEDS: metroNIDAZOLE 250 MG TAB PO SCH ×3 (09:05→20:43)
[2018-08-13] MEDS: Nicotine 7 MG PATCH TOP SCH (09:05)
[2018-08-13] MEDS: Collagenase 250 UNITS/GM Ointment 30 GM TUBE TOP SCH (09:05)
[2018-08-13] MEDS: Aspirin 81 mg Enteric Coated Tablet PO SCH (09:05)
[2018-08-13] MEDS: Clopidogrel Bisulfate 75 MG TAB PO SCH (09:05)
[2018-08-13] MEDS: Vancomycin HCl 1 GM in Sodium Chloride 0.9% 250 ML 250 ML IVPB SCH ×2 (09:05→20:42)
[2018-08-13] MEDS: Fluconazole 100 MG TAB PO SCH (09:05)
[2018-08-13] MEDS: Clotrimazole 1% Cream 15 GM TUBE TOP SCH ×2 (09:06→20:44)
[2018-08-13] MEDS: Pravastatin Sodium 20 MG TAB PO SCH (20:43)
[2018-08-13] MEDS: diphenhydrAMINE 25 MG CAP PO PRN (20:43)
[2018-08-14] MEDS: Ciprofloxacin 500 MG TAB PO SCH ×2 (05:44→19:37)
[2018-08-14 06:05] LABS: #Basophils 0.1 thou/uL (0.0-0.2); #Eosinphils 0.3 thou/uL (0.0-0.7); #Monocytes 0.6 thou/uL (0.11-0.59); #Neutrophils 3.9 thou/uL (1.40-6.50); %Basophils 1.3 % (0.0-1.0); %Eosinophils 4.8 % (0.0-10.0); %Lymphocytes 16.9 % (21.0-51.0); %Monocytes 10.2 % (0.0-10.0); %Neutrophils 66.8 % (42.0-75.0); Hemoglobin 13.4 g/dL (12.0-16.0); Mean Corpuscular HGB CONC 31.8 g/dL (32.0-36.0); Mean Corpuscular Hemoglobin 31.3 pg (27.0-31.0); Mean Corpuscular Volume 98.6 fL (78.0-98.0); Mean Platelet Volume 7.1 fL (7.4-10.4); Platelet Count 247 thou/uL (130-400); RBC Distribution Width 13.7 % (11.5-14.5); Red Blood Cell (RBC) Count 4.29 mill/uL (4.20-5.40); White Blood Cell (WBC) Count 5.8 thou/uL (4.8-10.8)
[2018-08-14 08:28] LABS: Vancomycin, Trough 23.8 ug/mL
--- NOTE | 2018-08-14 08:50 | PRG ---
DATE OF SERVICE: 08/11/2018 SUBJECTIVE: The patient said she is doing good. Her foot is a little sore. She has been very activ e walking the halls. The patient has asked that we stop the enoxaparin - Lovenox. She said her stom ach is just really sore from these shots. Nurses agree that she has been very active. OBJECTIVE: GENERAL: The patient is alert, appears in no distress. VITAL SIGNS: Shows a temperature of 96.6, pulse 72, respirations 22, O2 sat 97% on room air, blood p ressure 148/94. LUNGS: Clear. HEART: Regular rate. EXTREMITIES: In the left foot, there is still a little mild swelling in the first MP joint, but over all improving. The skin over the dorsum of the foot continues to look better. There is just kind of a light purple pinkish discoloration around the wound. The wound itself is a little smaller. There is a little rim of granulation tissue at the edge and there is occasional island of granulation tiss ue. The base still has a little yellowish deutsch material. The wound overall is a little smaller. LABORATORY DATA: Her CRP that was done on 08/08/2018 was 0.51. Her glucose over the last week fasti ng have ranged from 100-108. ASSESSMENT: 1. Cellulitis of the left foot. A. Postop infection following a bunion repair on 07/04/2018 with a simultaneous amputation of the le ft fifth toe following a traumatic crush injury to the tip of the toe with gangrenous and infection c johnson. B. Possible deep space involvement necessitating a long course of IV vancomycin. C. Cultures from the left fifth toe grew methicillin-resistant Staphylococcus aureus and Streptococc us epidermidis. D. Scheduled for 6-week course of IV vancomycin, oral ciprofloxacin and Flagyl. E. Improved as of 08/11/2018. 2. Status post bunion repair with hardware on 07/04/2018. A. Complicated by postop cellulitis. B. Wound incision has broke down, but anticipate healing by secondary intention. 1. Wound improved as of 08/11/2018. C. Remains on IV vancomycin and oral Cipro and metronidazole. 3. Status post amputation of the left fifth toe at the PIP joint, following a crush injury complicat ed by infection and gangrenous change. A. Improving. 4. History of diabetes mellitus. A. Hemoglobin A1c 5.5 on 06/21/2018. B. Controlled with no medications since marked weight reduction. C. Remains in good control with diet alone as of 08/11/2018. 5. Peripheral artery disease. A. Status post stents placed in the iliac vessels bilateral on 07/21/2018. B. Following stent placement, excellent pulses in both feet as of 07/23/2018. 6. Hyperlipidemia. 7. Cigarette abuse. A. Ceased smoking as of 07/12/2018. 8. Obesity. 9. Venous insufficiency of the lower extremities. A. Complicated by post-phlebitic syndrome of the right leg. B. Controlled as of 08/11/2018. 10. Depression, controlled. 11. Chronic low back pain secondary to lumbar spondylosis. A. Controlled as of 08/10/2018. B. Due to have surgery on her low back in the future. 12. Vulvovaginitis. A. Resolved as of 08/11/2018. PLAN: Continue present care. Continue present wound care. We will just continue the Lovenox since the patient is very mobile and is considered at this point a lower risk for any DVT.
--- NOTE | 2018-08-14 08:52 | PRG ---
DATE OF SERVICE: 08/14/2018 SUBJECTIVE: The patient says that her foot is doing good. She is walking a lot. The patient said s he is having soreness in her right shoulder with movement. OBJECTIVE: The patient is alert, has heat on the right shoulder which is helping the shoulder pain. Her temperature is 97.6, pulse 69, respirations 20, O2 saturation 97% on room air, blood pressure 18 1/80, last evening it was 153/70. The patient has not yet had morning medicines. Lungs are clear. Heart, regular rate. The left foot, the foot looks better. There is just a slight purplish discoloration around the wound. The wound is smaller, still has a deutsch yellowish base to th e wound, but overall, the wound is smaller and looks better. The fifth toe is healing well. Her lab shows an H&H of 13.4 and 42.3, WBC count 5800 with 67% segs, 17% lymphocytes, and a platelet count of 247,000. Her CMP is pending and her vancomycin trough level pending. Her sedimentation rat e is down to 25. ASSESSMENT: 1. Cellulitis of the left foot. A. Postop infection following a bunion repair on 07/04/2018 with a simultaneous amputation of the le ft fifth toe following a traumatic crush injury to the tip of the toe with gangrenous and infection c johnson. B. Possible deep space involvement necessitating a long course of IV vancomycin. C. Cultures from the left fifth toe grew methicillin-resistant Staphylococcus aureus and Streptococc us epidermidis. D. Scheduled for 6-week course of IV vancomycin, oral ciprofloxacin and Flagyl. E. Continued improvement with decrease in size of the wound as of 08/14/2018. 2. Status post bunion repair with hardware on 07/04/2018. A. Complicated by postop cellulitis. B. Wound incision has broke down, but anticipate healing by secondary intention. 1. Wound has improved and is smaller as of 08/14/2018. C. Remains on IV vancomycin and oral Cipro and metronidazole. 3. Status post amputation of the left fifth toe at the PIP joint, following a crush injury complicat ed by infection and gangrenous change. A. Healing as of 08/14/2018. 4. History of diabetes mellitus. A. Hemoglobin A1c 5.5 on 06/21/2018. B. Controlled with no medications since marked weight reduction. 5. Peripheral artery disease. A. Status post stents placed in the iliac vessels bilateral on 07/21/2018. B. Following stent placement, excellent pulses in both feet as of 07/23/2018. 6. Hyperlipidemia. 7. Cigarette abuse. A. Ceased smoking as of 07/12/2018. 8. Obesity. 9. Venous insufficiency of the lower extremities. A. Complicated by post-phlebitic syndrome of the right leg. B. Controlled as of 08/02/2018. 10. Depression, controlled. 11. Chronic low back pain secondary to lumbar spondylosis. A. Controlled as of 08/10/2018. B. Due to have surgery on her low back in the future. 12. Vulvovaginitis. A. Resolving as of 08/09/2018. 13. Right shoulder pain secondary to probable impingement syndrome. PLAN: Continue the IV vancomycin and the oral Cipro, metronidazole until 08/30/2018. The pain in th e right shoulder, probably from an impingement syndrome. Continue the heat, and do gentle range of m otion exercises.
[2018-08-14 09:11] LABS: ALT (SGPT) 44 U/L (8-55); AST (SGOT) 25 U/L (5-34); Alkaline Phosphatase 65 U/L (40-150); Anion Gap 14 mmol/L (10-20); BUN (Urea Nitrogen) 14 mg/dL (9.8-20.1); Bilirubin, Total 0.3 mg/dL (0.2-1.2); Calc. Creatinine Clearance 115 mL/min (70-130); Calcium 9.7 mg/dL (7.8-10.44); Carbon Dioxide 23 mmol/L (23-31); Chloride 108 mmol/L (98-107); Estimated GFR-MDRD 70; Globulin 3.1 g/dL (2.4-3.5); Glucose 107 mg/dL (80-115); Potassium 4.5 mmol/L (3.5-5.1); Protein, Total 7.1 g/dL (6.0-8.3); Sodium 140 mmol/L (136-145)
[2018-08-14] MEDS: Clopidogrel Bisulfate 75 MG TAB PO SCH (09:35)
[2018-08-14] MEDS: Aspirin 81 mg Enteric Coated Tablet PO SCH (09:35)
[2018-08-14] MEDS: Fluconazole 100 MG TAB PO SCH (09:35)
[2018-08-14] MEDS: Clotrimazole 1% Cream 15 GM TUBE TOP SCH ×2 (09:35→22:13)
[2018-08-14] MEDS: metroNIDAZOLE 250 MG TAB PO SCH ×3 (09:35→21:16)
[2018-08-14] MEDS: Nicotine 7 MG PATCH TOP SCH (09:36)
[2018-08-14] MEDS: Collagenase 250 UNITS/GM Ointment 30 GM TUBE TOP SCH (09:37)
[2018-08-14] MEDS: Naproxen 500 MG TAB PO PRN ×2 (09:40→19:39)
[2018-08-14] MEDS: Vancomycin HCl 750 MG in Sodium Chloride 0.9% 250 ML 250 ML IVPB SCH ×2 (09:45→21:18)
[2018-08-14] MEDS: Vancomycin HCl 500 MG in Sodium Chloride 0.9% 100 ML IVPB SCH ×3 (09:46→21:18)
[2018-08-14] MEDS: Vancomycin HCl 1 GM in Sodium Chloride 0.9% 250 ML 250 ML IVPB SCH (10:15)
[2018-08-14] MEDS: diphenhydrAMINE 25 MG CAP PO PRN (21:16)
[2018-08-14] MEDS: Pravastatin Sodium 20 MG TAB PO SCH (21:16)
[2018-08-15] MEDS: Ciprofloxacin 500 MG TAB PO SCH ×2 (05:24→21:10)
[2018-08-15] MEDS: Clopidogrel Bisulfate 75 MG TAB PO SCH (09:43)
[2018-08-15] MEDS: Vancomycin HCl 500 MG in Sodium Chloride 0.9% 100 ML IVPB SCH ×2 (09:43→21:44)
[2018-08-15] MEDS: Aspirin 81 mg Enteric Coated Tablet PO SCH (09:43)
[2018-08-15] MEDS: Nicotine 7 MG PATCH TOP SCH (09:43)
[2018-08-15] MEDS: metroNIDAZOLE 250 MG TAB PO SCH ×3 (09:43→21:10)
[2018-08-15] MEDS: Naproxen 500 MG TAB PO PRN (09:43)
[2018-08-15] MEDS: Vancomycin HCl 750 MG in Sodium Chloride 0.9% 250 ML 250 ML IVPB SCH ×2 (09:43→21:43)
[2018-08-15] MEDS: Clotrimazole 1% Cream 15 GM TUBE TOP SCH ×2 (09:44→21:12)
[2018-08-15] MEDS: Collagenase 250 UNITS/GM Ointment 30 GM TUBE TOP SCH (09:44)
--- NOTE | 2018-08-15 10:46 | PRG ---
DATE OF SERVICE: 08/15/2018 SUBJECTIVE: The patient said she is doing a lot better today. Her right shoulder is not hurting. S he has been taking the naproxen and using the heat and this worked very well. OBJECTIVE: The patient is walking in the hallway with physical therapy. She came in and sat down an d removed the dressing from her foot. She looks in no distress. Her vital signs show a temperature 97.7, pulse 69, respirations 18, O2 saturation 97%, blood pressure 161/84. Lungs are clear. Heart, regular rate. Left foot looks better. There is still just a mild enlargement of the first MP joint. On the dorsum of the foot, the ulcer was a little smaller. There is further loosening of yellowish base with some areas of deutsch discoloration. Overall, the wound looks better and smaller. The fifth toe continues to heal. Her FBS this morning was 104. Her C-reactive protein done yesterday was less than 0.5. Her vancomycin trough level was 23.8, which is in therapeutic range for the osteomyelitis and complicated cellulitis. ASSESSMENT: 1. Cellulitis of the left foot. A. Postop infection following a bunion repair on 07/04/2018 with a simultaneous amputation of the le ft fifth toe following a traumatic crush injury to the tip of the toe with gangrenous and infection c johnson. B. Possible deep space involvement necessitating a long course of IV vancomycin. C. Cultures from the left fifth toe grew methicillin-resistant Staphylococcus aureus and Streptococc us epidermidis. D. Scheduled for 6-week course of IV vancomycin, oral ciprofloxacin and Flagyl. E. Continued improvement with decrease in size of the wound as of 08/15/2018. 2. Status post bunion repair with hardware on 07/04/2018. A. Complicated by postop cellulitis. B. Wound incision has broke down, but anticipate healing by secondary intention. 1. Wound has improved and is smaller as of 08/15/2018. C. Remains on IV vancomycin and oral Cipro and metronidazole. 3. Status post amputation of the left fifth toe at the PIP joint, following a crush injury complicat ed by infection and gangrenous change. A. Healing as of 08/14/2018. 4. History of diabetes mellitus. A. Hemoglobin A1c 5.5 on 06/21/2018. B. Controlled with no medications since marked weight reduction. 5. Peripheral artery disease. A. Status post stents placed in the iliac vessels bilateral on 07/21/2018. B. Following stent placement, excellent pulses in both feet as of 07/23/2018. 6. Hyperlipidemia. 7. Cigarette abuse. A. Ceased smoking as of 07/12/2018. 8. Obesity. 9. Venous insufficiency of the lower extremities. A. Complicated by post-phlebitic syndrome of the right leg. B. Controlled as of 08/02/2018. 10. Depression, controlled. 11. Chronic low back pain secondary to lumbar spondylosis. A. Controlled as of 08/15/2018. B. Due to have surgery on her low back in the future. 12. Vulvovaginitis. A. Resolved as of 08/15/2018. 13. Right shoulder pain secondary to probable impingement syndrome. A. Controlled with heat and anti-inflammatory medicine as of 08/15/2018. PLAN: Continue present care. Continue the IV vancomycin, continue the oral antibiotics. Continue PT.
[2018-08-15] MEDS: Pravastatin Sodium 20 MG TAB PO SCH (21:10)
[2018-08-15] MEDS: diphenhydrAMINE 25 MG CAP PO PRN (21:10)
[2018-08-15 21:15] LABS: Vancomycin, Trough 17.5 ug/mL
[2018-08-15] MEDS ORDERED: Vancomycin HCl 750 MG VIAL ONE (21:31)
[2018-08-16] MEDS: Ciprofloxacin 500 MG TAB PO SCH ×2 (05:22→20:28)
--- NOTE | 2018-08-16 08:53 | PRG ---
DATE OF SERVICE: 08/16/2018 SUBJECTIVE: The patient says she is doing fine this morning. Her foot is feeling better. Her shoul kacy is not bothering her. OBJECTIVE: The patient is alert, appears comfortable in no distress. Her vital signs show a tempera ture of 96.7, pulse 107, earlier 70. The increased pulse was after she had been up and around, respi rations 18, O2 sat 95% on room air, blood pressure 143/83. Lungs are clear. Heart, regular rate. L eft foot, each day the foot looks a little better. The wound is a little smaller, still has yellowis h base that is decreasing and there is a little brown/deutsch appearing eschar triangular shaped that is also gradually getting a little smaller. Overall, the wound is improving. Her sedimentation done on the was 25 and her CRP was less than 0.5. ASSESSMENT: 1. Cellulitis of the left foot. A. Postop infection following a bunion repair on 07/04/2018 with a simultaneous amputation of the le ft fifth toe following a traumatic crush injury to the tip of the toe with gangrenous and infection c johnson. B. Possible deep space involvement necessitating a long course of IV vancomycin. C. Cultures from the left fifth toe grew methicillin-resistant Staphylococcus aureus and Streptococc us epidermidis. D. Scheduled for 6-week course of IV vancomycin, oral ciprofloxacin and Flagyl. E. Continued improvement with decrease in size of the wound as of 08/16/2018. 2. Status post bunion repair with hardware on 07/04/2018. A. Complicated by postop cellulitis. B. Wound incision has broke down, but anticipate healing by secondary intention. 1. Wound has improved and is smaller as of 08/16/2018. C. Remains on IV vancomycin and oral Cipro and metronidazole. 3. Status post amputation of the left fifth toe at the PIP joint, following a crush injury complicat ed by infection and gangrenous change. A. Healing as of 08/14/2018. 4. History of diabetes mellitus. A. Hemoglobin A1c 5.5 on 06/21/2018. B. Controlled with no medications since marked weight reduction. 5. Peripheral artery disease. A. Status post stents placed in the iliac vessels bilateral on 07/21/2018. B. Following stent placement, excellent pulses in both feet as of 07/23/2018. 6. Hyperlipidemia. 7. Cigarette abuse. A. Ceased smoking as of 07/12/2018. B. Remains off of the cigarettes as of 08/16/2018. 8. Obesity. 9. Venous insufficiency of the lower extremities. A. Complicated by post-phlebitic syndrome of the right leg. B. Controlled as of 08/02/2018. 10. Depression, controlled. 11. Chronic low back pain secondary to lumbar spondylosis. A. Controlled as of 08/15/2018. B. Due to have surgery on her low back in the future. 12. Vulvovaginitis. A. Resolved as of 08/15/2018. 13. Right shoulder pain secondary to probable impingement syndrome. A. Controlled with heat and anti-inflammatory medicine as of 08/15/2018. PLAN: Continue IV vancomycin and the oral Cipro and metronidazole. Continue PT. The patient due to stay on IV antibiotics until 08/30/2018.
[2018-08-16] MEDS: Vancomycin HCl 750 MG in Sodium Chloride 0.9% 250 ML 250 ML IVPB SCH ×2 (09:24→20:31)
[2018-08-16] MEDS: Nicotine 7 MG PATCH TOP SCH (09:25)
[2018-08-16] MEDS: metroNIDAZOLE 250 MG TAB PO SCH ×3 (09:25→20:29)
[2018-08-16] MEDS: Aspirin 81 mg Enteric Coated Tablet PO SCH (09:25)
[2018-08-16] MEDS: Clotrimazole 1% Cream 15 GM TUBE TOP SCH ×2 (09:25→20:28)
[2018-08-16] MEDS: Vancomycin HCl 500 MG in Sodium Chloride 0.9% 100 ML IVPB SCH ×2 (09:25→20:30)
[2018-08-16] MEDS: Clopidogrel Bisulfate 75 MG TAB PO SCH (09:25)
[2018-08-16] MEDS: Collagenase 250 UNITS/GM Ointment 30 GM TUBE TOP SCH (09:26)
[2018-08-16] MEDS: diphenhydrAMINE 25 MG CAP PO PRN (20:28)
[2018-08-16] MEDS: Pravastatin Sodium 20 MG TAB PO SCH (20:29)
[2018-08-17] MEDS: Ciprofloxacin 500 MG TAB PO SCH ×2 (05:01→19:26)
[2018-08-17] MEDS: Aspirin 81 mg Enteric Coated Tablet PO SCH (09:03)
[2018-08-17] MEDS: metroNIDAZOLE 250 MG TAB PO SCH ×3 (09:03→21:13)
[2018-08-17] MEDS: Clopidogrel Bisulfate 75 MG TAB PO SCH (09:03)
[2018-08-17] MEDS: Nicotine 7 MG PATCH TOP SCH (09:03)
[2018-08-17] MEDS: Clotrimazole 1% Cream 15 GM TUBE TOP SCH ×2 (09:04→21:23)
[2018-08-17] MEDS: Vancomycin HCl 500 MG in Sodium Chloride 0.9% 100 ML IVPB SCH ×2 (09:04→21:14)
[2018-08-17] MEDS: Vancomycin HCl 750 MG in Sodium Chloride 0.9% 250 ML 250 ML IVPB SCH ×2 (09:04→21:14)
[2018-08-17] MEDS: Collagenase 250 UNITS/GM Ointment 30 GM TUBE TOP SCH (09:06)
[2018-08-17] MEDS ORDERED: Sodium Chloride Irrig Solution 250 ML BOT ONE (20:25)
[2018-08-17] MEDS ORDERED: Sodium Chloride 0.9% 100 ML BAG ONE (20:25)
[2018-08-17] MEDS: diphenhydrAMINE 25 MG CAP PO PRN (21:12)
[2018-08-17] MEDS: Pravastatin Sodium 20 MG TAB PO SCH (21:13)
[2018-08-18] MEDS: Ciprofloxacin 500 MG TAB PO SCH ×2 (06:02→19:44)
[2018-08-18] MEDS: Vancomycin HCl 750 MG in Sodium Chloride 0.9% 250 ML 250 ML IVPB SCH ×2 (09:50→20:49)
[2018-08-18] MEDS: Vancomycin HCl 500 MG in Sodium Chloride 0.9% 100 ML IVPB SCH ×2 (09:50→20:49)
[2018-08-18] MEDS: Clopidogrel Bisulfate 75 MG TAB PO SCH (09:51)
[2018-08-18] MEDS: Nicotine 7 MG PATCH TOP SCH (09:51)
[2018-08-18] MEDS: Aspirin 81 mg Enteric Coated Tablet PO SCH (09:51)
[2018-08-18] MEDS: metroNIDAZOLE 250 MG TAB PO SCH ×4 (09:51→20:51)
[2018-08-18] MEDS: Clotrimazole 1% Cream 15 GM TUBE TOP SCH ×2 (09:52→21:12)
[2018-08-18] MEDS: Collagenase 250 UNITS/GM Ointment 30 GM TUBE TOP SCH (09:53)
[2018-08-18] MEDS: Naproxen 500 MG TAB PO PRN (19:48)
[2018-08-18] MEDS: Pravastatin Sodium 20 MG TAB PO SCH (20:51)
[2018-08-18] MEDS: diphenhydrAMINE 25 MG CAP PO PRN (21:01)
[2018-08-19] MEDS: Ciprofloxacin 500 MG TAB PO SCH ×2 (05:19→19:20)
[2018-08-19] MEDS: Vancomycin HCl 750 MG in Sodium Chloride 0.9% 250 ML 250 ML IVPB SCH ×2 (09:13→21:06)
[2018-08-19] MEDS: Clopidogrel Bisulfate 75 MG TAB PO SCH (09:14)
[2018-08-19] MEDS: Vancomycin HCl 500 MG in Sodium Chloride 0.9% 100 ML IVPB SCH ×2 (09:14→21:04)
[2018-08-19] MEDS: Naproxen 500 MG TAB PO PRN (09:14)
[2018-08-19] MEDS: metroNIDAZOLE 250 MG TAB PO SCH ×3 (09:14→21:04)
[2018-08-19] MEDS: Aspirin 81 mg Enteric Coated Tablet PO SCH (09:15)
[2018-08-19] MEDS: Clotrimazole 1% Cream 15 GM TUBE TOP SCH ×2 (09:15→21:07)
[2018-08-19] MEDS: Collagenase 250 UNITS/GM Ointment 30 GM TUBE TOP SCH (09:16)
[2018-08-19] MEDS: Nicotine 7 MG PATCH TOP SCH (09:16)
--- NOTE | 2018-08-19 12:37 | PRG ---
DATE OF SERVICE: 08/18/2018 SUBJECTIVE: The patient said that she is doing good. Her foot is doing better and feels better. Th e wound she thinks is improved. Eleni is due to be rechecked by her store detective this afternoon. OBJECTIVE: The patient is alert, talkative, looks very comfortable, in no distress. Her temperature is 96.2, pulse 61, respirations 22, O2 saturation 97%, blood pressure 141/86. Lungs are clear. Hea rt, regular rate. Left foot looks better. There is just a little mild pink, light purple discolorat ion to the skin immediately around the wound. Wound is smaller. The distal and proximal ends of the incision are healing. The central part still has a yellowish deutsch eschar, but this is smaller. Over all, the wound looks better. ASSESSMENT: 1. Cellulitis of the left foot. A. Postop infection following a bunion repair on 07/04/2018 with a simultaneous amputation of the le ft fifth toe following a traumatic crush injury to the tip of the toe with gangrenous and infection c johnson. B. Possible deep space involvement necessitating a long course of IV vancomycin. C. Cultures from the left fifth toe grew methicillin-resistant Staphylococcus aureus and Streptococc us epidermidis. D. Scheduled for 6-week course of IV vancomycin, oral ciprofloxacin and Flagyl. E. Continued improvement with decrease in size of the wound as of 08/18/2018. 2. Status post bunion repair with hardware on 07/04/2018. A. Complicated by postop cellulitis. B. Wound incision has broke down, but anticipate healing by secondary intention. 1. Wound has improved and is smaller as of 08/18/2018. C. Remains on IV vancomycin and oral Cipro and metronidazole. 3. Status post amputation of the left fifth toe at the PIP joint, following a crush injury complicat ed by infection and gangrenous change. A. Healing. The overlying scab has come off and the partially amputated toe looks very well as of 10/18/2017. 4. History of diabetes mellitus. A. Hemoglobin A1c 5.5 on 06/21/2018. B. Controlled with no medications since marked weight reduction. 5. Peripheral artery disease. A. Status post stents placed in the iliac vessels bilateral on 07/21/2018. B. Following stent placement, excellent pulses in both feet as of 07/23/2018. 6. Hyperlipidemia. 7. Cigarette abuse. A. Ceased smoking as of 07/12/2018. B. Remains off of the cigarettes as of 08/18/2018. 8. Obesity. 9. Venous insufficiency of the lower extremities. A. Complicated by post-phlebitic syndrome of the right leg. B. Controlled as of 08/02/2018. 10. Depression, controlled. 11. Chronic low back pain secondary to lumbar spondylosis. A. Controlled as of 08/18/2018. B. Due to have surgery on her low back in the future. 12. Vulvovaginitis. A. Resolved as of 08/15/2018. 13. Right shoulder pain secondary to probable impingement syndrome. A. Controlled with heat and anti-inflammatory medicine as of 08/18/2018. PLAN: Continue present care. Continue present wound care. The patient due to see her store detective th is afternoon. Continue PT.
--- NOTE | 2018-08-19 12:44 | PRG ---
DATE OF SERVICE: 08/19/2018 SUBJECTIVE: The patient said she is doing fine. Her foot feels good. She did see Dr. Valenzuela, her p odiatrist yesterday who x-rayed her foot. She was worried about the placement of the plate on that f irst ray of the foot. She thought that this may have to be reworked on. She is due to recheck her i n 10 days. The patient said the foot feels good. OBJECTIVE: GENERAL: The patient is sitting in bed, alert, talkative, appears very comfortable and in no distres s. VITAL SIGNS: Her temperature is 97.1, pulse 73, respirations 22, O2 sat 97% on room air, blood press ure 134/67. LUNGS: Clear. HEART: Regular rate. EXTREMITIES: Left foot looks better. The wound is a little smaller. The base of the wound has muco usy yellow base. The tanned portion has come off. Overall, the wound base looks better. The surrou nding tissue looks good. There is a little slight purplish discoloration. The fifth toe is healing well. There is no overlying eschar. ASSESSMENT: 1. Cellulitis of the left foot. A. Postop infection following a bunion repair on 07/04/2018 with a simultaneous amputation of the le ft fifth toe following a traumatic crush injury to the tip of the toe with gangrenous and infection c johnson. B. Possible deep space involvement necessitating a long course of IV vancomycin. C. Cultures from the left fifth toe grew methicillin-resistant Staphylococcus aureus and Streptococc us epidermidis. D. Scheduled for 6-week course of IV vancomycin, oral ciprofloxacin and Flagyl. E. Continued improvement with decrease in size of the wound as of 08/19/2018. 2. Status post bunion repair with hardware on 07/04/2018. A. Complicated by postop cellulitis. B. Wound incision has broke down, but anticipate healing by secondary intention. 1. Wound has improved and is smaller as of 08/19/2018. C. Remains on IV vancomycin and oral Cipro and metronidazole. 3. Status post amputation of the left fifth toe at the PIP joint, following a crush injury complicat ed by infection and gangrenous change. A. Continued healing with no ulceration present. Eschar has come off as of 08/19/2018. 4. History of diabetes mellitus. A. Hemoglobin A1c 5.5 on 06/21/2018. B. Controlled with no medications since marked weight reduction. 5. Peripheral artery disease. A. Status post stents placed in the iliac vessels bilateral on 07/21/2018. B. Following stent placement, excellent pulses in both feet as of 07/23/2018. 6. Hyperlipidemia. 7. Cigarette abuse. A. Ceased smoking as of 07/12/2018. B. Remains off of the cigarettes as of 08/19/2018. 8. Obesity. 9. Venous insufficiency of the lower extremities. A. Complicated by post-phlebitic syndrome of the right leg. B. Controlled as of 08/19/2018. 10. Depression, controlled. 11. Chronic low back pain secondary to lumbar spondylosis. A. Controlled as of 08/15/2018. B. Due to have surgery on her low back in the future. 12. Vulvovaginitis. A. Resolved as of 08/15/2018. 13. Right shoulder pain secondary to probable impingement syndrome. A. Controlled with heat and anti-inflammatory medicine as of 08/19/2018. PLAN: Continue present care. The patient is due for her weekly lab and vancomycin level on 08/21/2018. The patient is due to be seen in followup by Dr. Valenzuela, her water sander on 08/28/2018. Dr. Valenzuela is concerned about maybe the change of position of the plate. For now, we will continue pr esent care since everything seem to be improving.
[2018-08-19] MEDS: Pravastatin Sodium 20 MG TAB PO SCH (21:04)
[2018-08-19] MEDS: diphenhydrAMINE 25 MG CAP PO PRN (21:10)
[2018-08-20] MEDS: Ciprofloxacin 500 MG TAB PO SCH ×2 (05:18→20:20)
[2018-08-20] MEDS: Clopidogrel Bisulfate 75 MG TAB PO SCH (09:25)
[2018-08-20] MEDS: Aspirin 81 mg Enteric Coated Tablet PO SCH (09:25)
[2018-08-20] MEDS: Vancomycin HCl 500 MG in Sodium Chloride 0.9% 100 ML IVPB SCH ×2 (09:26→20:51)
[2018-08-20] MEDS: metroNIDAZOLE 250 MG TAB PO SCH ×3 (09:26→20:50)
[2018-08-20] MEDS: Nicotine 7 MG PATCH TOP SCH (09:26)
[2018-08-20] MEDS: Vancomycin HCl 750 MG in Sodium Chloride 0.9% 250 ML 250 ML IVPB SCH ×2 (09:27→20:51)
[2018-08-20] MEDS: Clotrimazole 1% Cream 15 GM TUBE TOP SCH ×2 (09:28→20:54)
[2018-08-20] MEDS: Collagenase 250 UNITS/GM Ointment 30 GM TUBE TOP SCH (09:29)
[2018-08-20] MEDS: Pravastatin Sodium 20 MG TAB PO SCH (20:51)
[2018-08-20] MEDS: diphenhydrAMINE 25 MG CAP PO PRN (21:02)
[2018-08-21 05:03] LABS: #Eosinphils 0.3 thou/uL (0.0-0.7); #Lymphocytes 1.2 thou/uL (1.20-3.40); #Monocytes 0.6 thou/uL (0.11-0.59); #Neutrophils 2.6 thou/uL (1.40-6.50); %Eosinophils 6.7 % (0.0-10.0); %Lymphocytes 24.9 % (21.0-51.0); %Monocytes 12.4 % (0.0-10.0); Hemoglobin 12.4 g/dL (12.0-16.0); Mean Corpuscular HGB CONC 32.6 g/dL (32.0-36.0); Mean Corpuscular Hemoglobin 31.8 pg (27.0-31.0); Mean Corpuscular Volume 97.5 fL (78.0-98.0); Mean Platelet Volume 6.5 fL (7.4-10.4); Platelet Count 224 thou/uL (130-400); RBC Distribution Width 13.6 % (11.5-14.5); Red Blood Cell (RBC) Count 3.89 mill/uL (4.20-5.40); White Blood Cell (WBC) Count 4.8 thou/uL (4.8-10.8)
[2018-08-21 05:25] LABS: ALT (SGPT) 30 U/L (8-55); AST (SGOT) 16 U/L (5-34); Albumin 3.6 g/dL (3.4-4.8); Alkaline Phosphatase 50 U/L (40-150); Anion Gap 12 mmol/L (10-20); BUN (Urea Nitrogen) 13 mg/dL (9.8-20.1); Bilirubin, Total 0.3 mg/dL (0.2-1.2); Calc. Creatinine Clearance 115 mL/min (70-130); Calcium 9.4 mg/dL (7.8-10.44); Carbon Dioxide 24 mmol/L (23-31); Chloride 110 mmol/L (98-107); Estimated GFR-MDRD 69; Globulin 2.4 g/dL (2.4-3.5); Glucose 100 mg/dL (80-115); Potassium 4.5 mmol/L (3.5-5.1); Sodium 141 mmol/L (136-145)
[2018-08-21] MEDS: Ciprofloxacin 500 MG TAB PO SCH ×2 (07:12→19:39)
[2018-08-21 08:30] LABS: Vancomycin, Trough 20.1 ug/mL
[2018-08-21] MEDS: metroNIDAZOLE 250 MG TAB PO SCH ×3 (08:49→20:41)
[2018-08-21] MEDS: Aspirin 81 mg Enteric Coated Tablet PO SCH (08:49)
[2018-08-21] MEDS: Vancomycin HCl 750 MG in Sodium Chloride 0.9% 250 ML 250 ML IVPB SCH ×2 (08:49→20:43)
[2018-08-21] MEDS: Clopidogrel Bisulfate 75 MG TAB PO SCH (08:49)
[2018-08-21] MEDS: Vancomycin HCl 500 MG in Sodium Chloride 0.9% 100 ML IVPB SCH ×2 (08:51→20:43)
[2018-08-21] MEDS: Clotrimazole 1% Cream 15 GM TUBE TOP SCH ×2 (08:52→20:44)
[2018-08-21] MEDS: Collagenase 250 UNITS/GM Ointment 30 GM TUBE TOP SCH (08:52)
[2018-08-21] MEDS: Nicotine 7 MG PATCH TOP SCH (08:57)
--- NOTE | 2018-08-21 11:58 | PRG ---
DATE OF SERVICE: 08/21/2018. SUBJECTIVE: The patient said she is doing good, the foot feels good. When she saw kayli Mendoza, she wanted her to wear her walking boot and she is due to be rechecked by her on 08/29/2018 wi th repeat x-rays to check the status of the plate and screws as she is concerned these may be loose. OBJECTIVE: GENERAL: The patient is alert, appears very comfortable in no distress. VITAL SIGNS: Shows temperature 97.6, pulse 73, respirations 22, O2 sat 96%, blood pressure 142/92. LUNGS: Clear. HEART: Regular rate. EXTREMITIES: Left foot, the foot looks better. There is minimal swelling over the first MP joint. The wound is smaller. There is a yellowish base that looks better and there are multiple little ever nds of granulation tissue throughout the wound base. The surrounding tissue has a light purplish dis coloration, overall looks better. This toe is healing well. LABORATORY DATA: Shows H&H of 12.4 and 37.9. White cell count 4800 with 55% segs, 25% lymphocytes, and platelet count of 224,000. Sed rate down to 19. Sodium 141, potassium 4.5, BUN 13, creatinine 0 .83, GFR 69, glucose 100. CRP less than 0.5. Vancomycin trough level on 08/17/2018 was 18. ASSESSMENT: 1. Cellulitis of the left foot. A. Postop infection following a bunion repair on 07/04/2018 with a simultaneous amputation of the le ft fifth toe following a traumatic crush injury to the tip of the toe with gangrenous and infection c johnson. B. Possible deep space involvement necessitating a long course of IV vancomycin. C. Cultures from the left fifth toe grew methicillin-resistant Staphylococcus aureus and Streptococc us epidermidis. D. Scheduled for 6-week course of IV vancomycin, oral ciprofloxacin and Flagyl. E. Continued improvement with decrease in size of the wound and sed rate down to 15 and CRP less cata n 0.5 as of 08/21/2018. 2. Status post bunion repair with hardware on 07/04/2018. A. Complicated by postop cellulitis. B. Wound incision has broke down, but anticipate healing by secondary intention. 1. Wound has improved and is smaller as of 08/21/2018. C. Remains on IV vancomycin and oral Cipro and metronidazole. D. Possible loosening of the plate and screws, due to be rechecked by Dr. Valenzuela on 08/29/2018 with repeat x-rays. 3. Status post amputation of the left fifth toe at the PIP joint, following a crush injury complicat ed by infection and gangrenous change. A. Continued healing with no ulceration present. Eschar has come off as of 08/19/2018. 4. History of diabetes mellitus. A. Hemoglobin A1c 5.5 on 06/21/2018. B. Controlled with no medications since marked weight reduction. 5. Peripheral artery disease. A. Status post stents placed in the iliac vessels bilateral on 07/21/2018. B. Following stent placement, excellent pulses in both feet as of 07/23/2018. 6. Hyperlipidemia. 7. Cigarette abuse. A. Ceased smoking as of 07/12/2018. B. Remains off of the cigarettes as of 08/21/2018. 8. Obesity. 9. Venous insufficiency of the lower extremities. A. Complicated by post-phlebitic syndrome of the right leg. B. Controlled as of 08/21/2018. 10. Depression, controlled. 11. Chronic low back pain secondary to lumbar spondylosis. A. Controlled as of 08/15/2018. B. Due to have surgery on her low back in the future. 12. Vulvovaginitis. A. Resolved as of 08/15/2018. 13. Right shoulder pain secondary to probable impingement syndrome. A. Controlled with heat and anti-inflammatory medicine as of 08/21/2018. PLAN: Continue IV antibiotics. Continue present wound care. Encourage her to wear a boot when walk ing. Due to see Dr. Valenzuela on 08/29/2018. Continue PT.
[2018-08-21] MEDS: Pravastatin Sodium 20 MG TAB PO SCH (20:41)
[2018-08-21] MEDS: diphenhydrAMINE 25 MG CAP PO PRN (20:41)
[2018-08-22] MEDS: Ciprofloxacin 500 MG TAB PO SCH ×2 (05:28→20:22)
[2018-08-22] MEDS: Clopidogrel Bisulfate 75 MG TAB PO SCH (08:23)
[2018-08-22] MEDS: Aspirin 81 mg Enteric Coated Tablet PO SCH (08:23)
[2018-08-22] MEDS: metroNIDAZOLE 250 MG TAB PO SCH ×3 (08:23→20:45)
[2018-08-22] MEDS: Clotrimazole 1% Cream 15 GM TUBE TOP SCH ×2 (08:23→20:47)
[2018-08-22] MEDS: Nicotine 7 MG PATCH TOP SCH (08:24)
[2018-08-22] MEDS: Collagenase 250 UNITS/GM Ointment 30 GM TUBE TOP SCH (08:24)
[2018-08-22] MEDS: Vancomycin HCl 500 MG in Sodium Chloride 0.9% 100 ML IVPB SCH ×2 (08:25→20:45)
[2018-08-22] MEDS: Vancomycin HCl 750 MG in Sodium Chloride 0.9% 250 ML 250 ML IVPB SCH ×2 (08:25→20:44)
--- NOTE | 2018-08-22 10:01 | PRG ---
DATE OF SERVICE: 08/22/2018 SUBJECTIVE: The patient is doing well. She is trying to walk more, wearing her walking boot on the left foot. OBJECTIVE: The patient is alert, appears in no distress. Her temp 97, pulse 66, respirations 18, O2 sat 97% on room air. Her blood pressure 150/76 earlier 141/71. Lungs are clear. Heart, regular ra te. Weight 234. Gradual gain from admission. Admission weight was 218. Her lungs were clear. Hea rt, regular rate. Left foot looks very good. There is a slight mild purplish light purplish discolo ration and medial around the wound, but this is fading. The wound itself is smaller. There is more islands a little throughout the base of granulation tissue. Overall, though the foot looks better. The left fifth toe also is doing well. ASSESSMENT: 1. Cellulitis of the left foot. A. Postop infection following a bunion repair on 07/04/2018 with a simultaneous amputation of the le ft fifth toe following a traumatic crush injury to the tip of the toe with gangrenous and infection c johnson. B. Possible deep space involvement necessitating a long course of IV vancomycin. C. Cultures from the left fifth toe grew methicillin-resistant Staphylococcus aureus and Streptococc us epidermidis. D. Scheduled for 6-week course of IV vancomycin, oral ciprofloxacin and Flagyl. E. Continued improvement with the wound is decreasing in size as of 08/22/2018. 2. Status post bunion repair with hardware on 07/04/2018. A. Complicated by postop cellulitis. B. Wound incision has broke down, but anticipate healing by secondary intention. 1. Wound has improved and is smaller as of 08/22/2018. C. Remains on IV vancomycin and oral Cipro and metronidazole. D. Possible loosening of the plate and screws, due to be rechecked by Dr. Valenzuela on 08/29/2018 with repeat x-rays. 3. Status post amputation of the left fifth toe at the PIP joint, following a crush injury complicat ed by infection and gangrenous change. A. Continued healing with no ulceration present. Eschar has come off as of 08/19/2018. 4. History of diabetes mellitus. A. Hemoglobin A1c 5.5 on 06/21/2018. B. Controlled with no medications since marked weight reduction. 5. Peripheral artery disease. A. Status post stents placed in the iliac vessels bilateral on 07/21/2018. B. Following stent placement, excellent pulses in both feet as of 07/23/2018. 6. Hyperlipidemia. 7. Cigarette abuse. A. Ceased smoking as of 07/12/2018. B. Remains off of the cigarettes as of 08/22/2018. 8. Obesity. 9. Venous insufficiency of the lower extremities. A. Complicated by post-phlebitic syndrome of the right leg. B. Controlled as of 08/22/2018. 10. Depression, controlled. 11. Chronic low back pain secondary to lumbar spondylosis. A. Controlled as of 08/22/2018. B. Due to have surgery on her low back in the future. 12. Vulvovaginitis. A. Resolved as of 08/15/2018. 13. Right shoulder pain secondary to probable impingement syndrome. A. Controlled with heat and anti-inflammatory medicine as of 08/21/2018. PLAN: Continue IV antibiotics. Continue local wound care. Continue PT.
[2018-08-22] MEDS: diphenhydrAMINE 25 MG CAP PO PRN (20:45)
[2018-08-22] MEDS: Pravastatin Sodium 20 MG TAB PO SCH (20:45)
[2018-08-23] MEDS: Ciprofloxacin 500 MG TAB PO SCH ×2 (05:41→21:20)
[2018-08-23 08:20] LABS: Vancomycin, Trough 17.8 ug/mL
[2018-08-23] MEDS: Aspirin 81 mg Enteric Coated Tablet PO SCH (08:42)
[2018-08-23] MEDS: Clotrimazole 1% Cream 15 GM TUBE TOP SCH ×2 (08:42→21:21)
[2018-08-23] MEDS: Collagenase 250 UNITS/GM Ointment 30 GM TUBE TOP SCH (08:42)
[2018-08-23] MEDS: Clopidogrel Bisulfate 75 MG TAB PO SCH (08:42)
[2018-08-23] MEDS: metroNIDAZOLE 250 MG TAB PO SCH ×3 (08:42→21:20)
[2018-08-23] MEDS: Nicotine 7 MG PATCH TOP SCH (08:43)
[2018-08-23] MEDS: Vancomycin HCl 750 MG in Sodium Chloride 0.9% 250 ML 250 ML IVPB SCH ×2 (08:44→21:15)
[2018-08-23] MEDS: Vancomycin HCl 500 MG in Sodium Chloride 0.9% 100 ML IVPB SCH ×2 (08:44→21:15)
[2018-08-23] MEDS: Pravastatin Sodium 20 MG TAB PO SCH (21:20)
[2018-08-23] MEDS: diphenhydrAMINE 25 MG CAP PO PRN (21:22)
[2018-08-24] MEDS: Ciprofloxacin 500 MG TAB PO SCH ×2 (05:53→20:31)
[2018-08-24] MEDS: metroNIDAZOLE 250 MG TAB PO SCH ×3 (09:23→20:31)
[2018-08-24] MEDS: Nicotine 7 MG PATCH TOP SCH (09:23)
[2018-08-24] MEDS: Aspirin 81 mg Enteric Coated Tablet PO SCH (09:23)
[2018-08-24] MEDS: Vancomycin HCl 500 MG in Sodium Chloride 0.9% 100 ML IVPB SCH ×2 (09:24→20:29)
[2018-08-24] MEDS: Vancomycin HCl 750 MG in Sodium Chloride 0.9% 250 ML 250 ML IVPB SCH ×2 (09:24→20:30)
[2018-08-24] MEDS: Clotrimazole 1% Cream 15 GM TUBE TOP SCH ×2 (09:25→20:32)
[2018-08-24] MEDS: Clopidogrel Bisulfate 75 MG TAB PO SCH (09:25)
[2018-08-24] MEDS: Collagenase 250 UNITS/GM Ointment 30 GM TUBE TOP SCH (09:26)
--- NOTE | 2018-08-24 09:39 | PRG ---
DATE OF SERVICE: 08/24/2018 SUBJECTIVE: The patient said she is doing pretty good. She is having a little soreness in that left foot around the dorsum and medial and lateral side of the first metatarsal. There has been no redne ss, no drainage. She has had no fever. She is walking. She is wearing her boot. OBJECTIVE: The patient is alert, appears very comfortable in no distress. Her temperature is 96.2, pulse 68, respirations 20, O2 sat 98% on room air, blood pressure 173/92, previous reading was 163/90 . Most of her readings are the 130s to 140s systolic. Lungs are clear. Heart, regular rate. Left foot looks good. The wound is smaller the closing of the distal and proximal end of the incision, th e middle portion is a little smaller. The wound base is a little smaller. There is a little yellowi sh slough, but there is more islands of granulation tissue that are popping through. Overall, the wo und looks better. There is no surrounding redness. Still just a light little purplish discoloration of the skin. ASSESSMENT: 1. Cellulitis of the left foot. A. Postop infection following a bunion repair on 07/04/2018 with a simultaneous amputation of the le ft fifth toe following a traumatic crush injury to the tip of the toe with gangrenous and infection marlin ornelas. B. Possible deep space involvement necessitating a long course of IV vancomycin. C. Cultures from the left fifth toe grew methicillin-resistant Staphylococcus aureus and Streptococc us epidermidis. D. Scheduled for 6-week course of IV vancomycin, oral ciprofloxacin and Flagyl. E. Continued improvement with the wound is decreasing in size as of 08/24/2018. 2. Status post bunion repair with hardware on 07/04/2018. A. Complicated by postop cellulitis. B. Wound incision has broke down, but anticipate healing by secondary intention. 1. Wound has improved and is smaller as of 08/24/2018. C. Remains on IV vancomycin and oral Cipro and metronidazole. D. Possible loosening of the plate and screws, due to be rechecked by Dr. Valenzuela on 08/29/2018 with repeat x-rays. 3. Status post amputation of the left fifth toe at the PIP joint, following a crush injury complicat ed by infection and gangrenous change. A. Continued healing as of 08/24/2018. 4. History of diabetes mellitus. A. Hemoglobin A1c 5.5 on 06/21/2018. B. Controlled with no medications since marked weight reduction. 5. Peripheral artery disease. A. Status post stents placed in the iliac vessels bilateral on 07/21/2018. B. Following stent placement, excellent pulses in both feet as of 07/23/2018. 6. Hyperlipidemia. 7. Cigarette abuse. A. Ceased smoking as of 07/12/2018. B. Remains off of the cigarettes as of 08/22/2018. 8. Obesity. 9. Venous insufficiency of the lower extremities. A. Complicated by post-phlebitic syndrome of the right leg. B. Controlled as of 08/22/2018. 10. Depression, controlled. 11. Chronic low back pain secondary to lumbar spondylosis. A. Controlled as of 08/22/2018. B. Due to have surgery on her low back in the future. 12. Vulvovaginitis. A. Resolved as of 08/15/2018. 13. Right shoulder pain secondary to probable impingement syndrome. A. Controlled with heat and anti-inflammatory medicine as of 08/24/2018. PLAN: Continue present care. The patient is scheduled to continue the IV antibiotics and Cipro and metronidazole until 08/30/2018 and then be switched to minocycline orally. She is due to see Dr. Feliz naqvi, her wig maker, back on 08/28/2018. Continue to ambulate within her comfort, but wear her walki ng boot. Continue present wound care.
[2018-08-24] MEDS: Pravastatin Sodium 20 MG TAB PO SCH (20:30)
[2018-08-24] MEDS ORDERED: Sterile Water Irrigation 250 ML BOT ONE (23:23)
[2018-08-24] MEDS ORDERED: Sodium Chloride Irrig Solution 250 ML BOT ONE (23:23)
[2018-08-24] MEDS ORDERED: Sodium Chloride 0.9% 100 ML BAG ONE (23:23)
[2018-08-25] MEDS: Ciprofloxacin 500 MG TAB PO SCH ×2 (05:40→21:12)
[2018-08-25] MEDS: metroNIDAZOLE 250 MG TAB PO SCH ×3 (09:28→21:13)
[2018-08-25] MEDS: Vancomycin HCl 500 MG in Sodium Chloride 0.9% 100 ML IVPB SCH ×2 (09:28→21:13)
[2018-08-25] MEDS: Aspirin 81 mg Enteric Coated Tablet PO SCH (09:28)
[2018-08-25] MEDS: Clopidogrel Bisulfate 75 MG TAB PO SCH (09:28)
[2018-08-25] MEDS: Nicotine 7 MG PATCH TOP SCH (09:28)
[2018-08-25] MEDS: Clotrimazole 1% Cream 15 GM TUBE TOP SCH ×2 (09:30→21:12)
[2018-08-25] MEDS: Collagenase 250 UNITS/GM Ointment 30 GM TUBE TOP SCH (09:30)
[2018-08-25] MEDS: Vancomycin HCl 750 MG in Sodium Chloride 0.9% 250 ML 250 ML IVPB SCH ×2 (09:31→21:14)
--- NOTE | 2018-08-25 10:58 | PRG ---
DATE OF SERVICE: 08/25/2018 SUBJECTIVE: The patient thinks she is doing alright. Her foot feels pretty good. She has a little soreness on the foot, but no really change. She is up walking with the foot, but wears her walking boot. OBJECTIVE: The patient is alert, appears very comfortable in no distress. Her temperature is 97.8, pulse 64, respirations 18, O2 sat 96% on room air, blood pressure 135/81. Lungs are clear. Heart, r egular rate. Left foot looks better. There is just a very slight light purple discoloration of the skin around the wound. The wound is smaller. The proximal and distal 3 cm of the incision have heal ed over. The central part of the wound continues to improve, it is smaller. The yellowish base is s maller and there is still more areas of granulation tissue present. Overall it looks better. ASSESSMENT: 1. Cellulitis of the left foot. A. Postop infection following a bunion repair on 07/04/2018 with a simultaneous amputation of the le ft fifth toe following a traumatic crush injury to the tip of the toe with gangrenous and infection marlin ornelas. B. Possible deep space involvement necessitating a long course of IV vancomycin. C. Cultures from the left fifth toe grew methicillin-resistant Staphylococcus aureus and Streptococc us epidermidis. D. Scheduled for 6-week course of IV vancomycin, oral ciprofloxacin and Flagyl. E. Continued improvement with the wound is decreasing in size as of 08/25/2018. 2. Status post bunion repair with hardware on 07/04/2018. A. Complicated by postop cellulitis. B. Wound incision has broke down, but anticipate healing by secondary intention. 1. Wound has improved and is smaller as of 08/25/2018. C. Remains on IV vancomycin and oral Cipro and metronidazole. D. Possible loosening of the plate and screws, due to be rechecked by Dr. Valenzuela on 08/29/2018 with repeat x-rays. 3. Status post amputation of the left fifth toe at the PIP joint, following a crush injury complicat ed by infection and gangrenous change. A. Continued healing as of 08/25/2018. 4. History of diabetes mellitus. A. Hemoglobin A1c 5.5 on 06/21/2018. B. Controlled with no medications since marked weight reduction. 5. Peripheral artery disease. A. Status post stents placed in the iliac vessels bilateral on 07/21/2018. B. Following stent placement, excellent pulses in both feet as of 07/23/2018. 6. Hyperlipidemia. 7. Cigarette abuse. A. Ceased smoking as of 07/12/2018. B. Remains off of the cigarettes as of 08/22/2018. 8. Obesity. 9. Venous insufficiency of the lower extremities. A. Complicated by post-phlebitic syndrome of the right leg. B. Controlled as of 08/22/2018. 10. Depression, controlled. 11. Chronic low back pain secondary to lumbar spondylosis. A. Controlled as of 08/25/2018. B. Due to have surgery on her low back in the future. 12. Vulvovaginitis. A. Resolved as of 08/15/2018. 13. Right shoulder pain secondary to probable impingement syndrome. A. Controlled with heat and anti-inflammatory medicine as of 08/24/2018. PLAN: Continue present care. Continue the vancomycin and continue PT.
[2018-08-25] MEDS: Pravastatin Sodium 20 MG TAB PO SCH (21:13)
[2018-08-25] MEDS: diphenhydrAMINE 25 MG CAP PO PRN (21:13)
[2018-08-26] MEDS: Ciprofloxacin 500 MG TAB PO SCH ×2 (05:19→20:57)
[2018-08-26] MEDS: Nicotine 7 MG PATCH TOP SCH (09:26)
[2018-08-26] MEDS: metroNIDAZOLE 250 MG TAB PO SCH ×3 (09:26→21:20)
[2018-08-26] MEDS: Vancomycin HCl 750 MG in Sodium Chloride 0.9% 250 ML 250 ML IVPB SCH ×2 (09:26→21:20)
[2018-08-26] MEDS: Aspirin 81 mg Enteric Coated Tablet PO SCH (09:26)
[2018-08-26] MEDS: Clopidogrel Bisulfate 75 MG TAB PO SCH (09:26)
[2018-08-26] MEDS: Vancomycin HCl 500 MG in Sodium Chloride 0.9% 100 ML IVPB SCH ×2 (09:27→21:20)
[2018-08-26] MEDS: Collagenase 250 UNITS/GM Ointment 30 GM TUBE TOP SCH (09:27)
[2018-08-26] MEDS: Clotrimazole 1% Cream 15 GM TUBE TOP SCH ×2 (09:27→21:48)
[2018-08-26] MEDS: Pravastatin Sodium 20 MG TAB PO SCH (21:20)
[2018-08-26] MEDS: diphenhydrAMINE 25 MG CAP PO PRN (21:20)
[2018-08-27] MEDS: Ciprofloxacin 500 MG TAB PO SCH ×2 (05:32→20:24)
[2018-08-27] MEDS: Collagenase 250 UNITS/GM Ointment 30 GM TUBE TOP SCH (08:09)
[2018-08-27] MEDS: Aspirin 81 mg Enteric Coated Tablet PO SCH (08:09)
[2018-08-27] MEDS: Clotrimazole 1% Cream 15 GM TUBE TOP SCH ×2 (08:09→20:24)
[2018-08-27] MEDS: metroNIDAZOLE 250 MG TAB PO SCH ×3 (08:09→20:23)
[2018-08-27] MEDS: Nicotine 7 MG PATCH TOP SCH (08:09)
[2018-08-27] MEDS: Clopidogrel Bisulfate 75 MG TAB PO SCH (08:09)
[2018-08-27 08:22] LABS: ALT (SGPT) 31 U/L (8-55); AST (SGOT) 18 U/L (5-34); Albumin 4.1 g/dL (3.4-4.8); Alkaline Phosphatase 54 U/L (40-150); Anion Gap 13 mmol/L (10-20); BUN (Urea Nitrogen) 18 mg/dL (9.8-20.1); Bilirubin, Total 0.4 mg/dL (0.2-1.2); Calc. Creatinine Clearance 114 mL/min (70-130); Calcium 9.8 mg/dL (7.8-10.44); Carbon Dioxide 23 mmol/L (23-31); Chloride 110 mmol/L (98-107); Estimated GFR-MDRD 68; Globulin 2.9 g/dL (2.4-3.5); Glucose 105 mg/dL (80-115); Potassium 4.7 mmol/L (3.5-5.1); Sodium 141 mmol/L (136-145)
[2018-08-27 08:23] LABS: Vancomycin, Trough 20.4 ug/mL
[2018-08-27 08:26] LABS: Eosinophils 5 % (0-10); Hemoglobin 13.6 g/dL (12.0-16.0); Lymphocytes 21 % (21-51); MDiff Complete? YES; Mean Corpuscular HGB CONC 31.9 g/dL (32.0-36.0); Mean Corpuscular Hemoglobin 31.4 pg (27.0-31.0); Mean Corpuscular Volume 98.6 fL (78.0-98.0); Mean Platelet Volume 7.2 fL (7.4-10.4); Metamyelocyte 1 % (0-0); Monocytes 3 % (0-10); Neutrophil 53 % (42-75); PLT Morphology Comment Appears Adequate; Platelet Clumps SLIGHT; Platelet Count 245 thou/uL (130-400); RBC Distribution Width 13.3 % (11.5-14.5); RBC Morphology Normal; Reactive Lymphocytes 17 % (0-10); Red Blood Cell (RBC) Count 4.34 mill/uL (4.20-5.40); White Blood Cell (WBC) Count 4.3 thou/uL (4.8-10.8)
[2018-08-27] MEDS: Vancomycin HCl 750 MG in Sodium Chloride 0.9% 250 ML 250 ML IVPB SCH ×2 (09:26→20:22)
[2018-08-27] MEDS: Vancomycin HCl 500 MG in Sodium Chloride 0.9% 100 ML IVPB SCH ×2 (09:26→20:23)
[2018-08-27 15:06] LABS: CRP (Inflammatory) Less than 0.50 mg/dL (= or < 0.5)
[2018-08-27] MEDS: Pravastatin Sodium 20 MG TAB PO SCH (20:24)
[2018-08-28] MEDS ORDERED: Vancomycin HCl 500 MG in Sodium Chloride 0.9% 100 ML IVPB SCH (05:00)
[2018-08-28] MEDS ORDERED: Vancomycin HCl 750 MG in Sodium Chloride 0.9% 250 ML 250 ML IVPB SCH (05:00)
[2018-08-28] MEDS: Ciprofloxacin 500 MG TAB PO SCH ×2 (05:32→20:29)
[2018-08-28] MEDS: Nicotine 7 MG PATCH TOP SCH (08:18)
[2018-08-28] MEDS: metroNIDAZOLE 250 MG TAB PO SCH ×3 (08:18→20:28)
[2018-08-28] MEDS: Aspirin 81 mg Enteric Coated Tablet PO SCH (08:18)
[2018-08-28] MEDS: Clopidogrel Bisulfate 75 MG TAB PO SCH (08:18)
[2018-08-28] MEDS: Clotrimazole 1% Cream 15 GM TUBE TOP SCH ×2 (08:19→20:29)
[2018-08-28] MEDS: Collagenase 250 UNITS/GM Ointment 30 GM TUBE TOP SCH (08:19)
[2018-08-28] MEDS: Vancomycin HCl 750 MG in Sodium Chloride 0.9% 250 ML 250 ML IVPB SCH ×2 (08:20→20:32)
[2018-08-28] MEDS: Vancomycin HCl 500 MG in Sodium Chloride 0.9% 100 ML IVPB SCH ×2 (08:20→20:36)
--- NOTE | 2018-08-28 12:00 | PRG ---
DATE OF SERVICE: 08/28/2018 SUBJECTIVE: The patient says were foot feels better. Some of the soreness is much improved. She sa ys the wound is doing better. Her appointment with Dr. Valenzuela, the bullet slugs inspector, has been rescheduled by Dr. Valenzuela for Tuesday09/01/2018. She is due to see Dr. Rodrigues, her sanforizing machine operator to check on the stents to the legs later morning. OBJECTIVE: The patient is alert and appears very comfortable in no distress. Her vital signs show a temperature 98, pulse 70, respirations 18, O2 sat 96% on room air, blood pressure 139/66. Lungs are clear. Heart, regular rate. Left foot looks much better with just a slight light purplish discolor ation immediately around the wound. The wound continues to get smaller. The proximal and distal por tion of the incisions are healed. The central part is smaller. The base is signs cleaner. There is just a little yellowish debris in the base, but there are multiple buds of granulation tissue extending in to this. Overall, the wound looks excellent. There is no edema in the legs. Her lab shows an H&H o f 13.6 and 42.8, white cell count 4300 with 53% segs, 21% lymphocytes, 17% reactive lymphocytes, sed rate down to 17. Sodium 141, potassium 4.7, BUN 18, creatinine 0.85, GFR 68. FBS 105. CRP less cata n 0.5. Her vancomycin trough level is 20.4. ASSESSMENT: 1. Cellulitis of the left foot. A. Postop infection following a bunion repair on 07/04/2018 with a simultaneous amputation of the le ft fifth toe following a traumatic crush injury to the tip of the toe with gangrenous and infection c johnson. B. Possible deep space involvement necessitating a long course of IV vancomycin. C. Cultures from the left fifth toe grew methicillin-resistant Staphylococcus aureus and Streptococc us epidermidis. D. Scheduled for 6-week course of IV vancomycin, oral ciprofloxacin and Flagyl. E. Continued excellent healing of the wound with the wound decreasing in size. No evidence of acute infection as of 08/28/2018. 2. Status post bunion repair with hardware on 07/04/2018. A. Complicated by postop cellulitis. B. Wound incision has broke down, but anticipate healing by secondary intention. 1. Wound has improved and is smaller as of 08/28/2018. C. Remains on IV vancomycin and oral Cipro and metronidazole. D. Due to be rechecked by Dr. Valenzuela, the bullet slugs inspector on 09/01/2018 with repeat x-rays. 3. Status post amputation of the left fifth toe at the PIP joint, following a crush injury complicat ed by infection and gangrenous change. A. Continued healing as of 08/28/2018. 4. History of diabetes mellitus. A. Hemoglobin A1c 5.5 on 06/21/2018. B. Controlled with no medications since marked weight reduction. 5. Peripheral artery disease. A. Status post stents placed in the iliac vessels bilateral on 07/21/2018. B. Following stent placement, excellent pulses in both feet as of 07/23/2018. 6. Hyperlipidemia. 7. Cigarette abuse. A. Ceased smoking as of 07/12/2018. B. Remains off of the cigarettes as of 08/22/2018. 8. Obesity. 9. Venous insufficiency of the lower extremities. A. Complicated by post-phlebitic syndrome of the right leg. B. Controlled as of 08/22/2018. 10. Depression, controlled. 11. Chronic low back pain secondary to lumbar spondylosis. A. Controlled as of 08/25/2018. B. Due to have surgery on her low back in the future. 12. Vulvovaginitis. A. Resolved as of 08/15/2018. 13. Right shoulder pain secondary to probable impingement syndrome. A. Controlled with heat and anti-inflammatory medicine as of 08/24/2018. PLAN: Continue present care. The patient's sed rate is down to 17, CRP down to less than 0.5. She remains afebrile and the wound continues to get smaller. We will complete the vancomycin on 08/30/20 18 as well as the Cipro and the metronidazole. We will then switch her to Minocin. Continue presen t wound care and PT. The patient is due to see Dr. Rodrigues today and Dr. Valenzuela the bullet slugs inspector on Tue09/01/2018.
[2018-08-28] MEDS: Naproxen 500 MG TAB PO PRN (14:51)
[2018-08-28 18:26] VITALS: BMI 39.0
[2018-08-28] MEDS: Pravastatin Sodium 20 MG TAB PO SCH (20:28)
[2018-08-29] MEDS: Ciprofloxacin 500 MG TAB PO SCH ×2 (05:36→20:07)
[2018-08-29] MEDS: Aspirin 81 mg Enteric Coated Tablet PO SCH (09:12)
[2018-08-29] MEDS: metroNIDAZOLE 250 MG TAB PO SCH ×3 (09:12→20:07)
[2018-08-29] MEDS: Clotrimazole 1% Cream 15 GM TUBE TOP SCH ×2 (09:13→20:08)
[2018-08-29] MEDS: Clopidogrel Bisulfate 75 MG TAB PO SCH (09:13)
[2018-08-29] MEDS: Nicotine 7 MG PATCH TOP SCH (09:13)
[2018-08-29] MEDS: Vancomycin HCl 500 MG in Sodium Chloride 0.9% 100 ML IVPB SCH ×2 (09:14→20:06)
[2018-08-29] MEDS: Vancomycin HCl 750 MG in Sodium Chloride 0.9% 250 ML 250 ML IVPB SCH ×2 (09:15→20:06)
[2018-08-29] MEDS: Collagenase 250 UNITS/GM Ointment 30 GM TUBE TOP SCH (09:15)
--- NOTE | 2018-08-29 09:36 | PRG ---
DATE OF SERVICE: 08/29/2018 SUBJECTIVE: The patient thinks she is doing better. She did have a visit at Dr. Rodrigues, her cardiol ogist's office and said that her circulation to her leg since the stent was applied is doing well. Moises sandoval do plan on later checking her hard out a little further even though she is asymptomatic due to he r peripheral artery disease. She is making plans to go home early on the morning of 08/31/2018 after she completes her antibiotics, that is vancomycin on the evening of 08/30/2018. Her foot is feeling better. She is due to see Dr. Valenzuela on 09/01/2018. OBJECTIVE: The patient is alert, appears in no distress. Her vital signs shows a temperature of 97. 7, pulse 69, respirations 18, O2 sat 96% on room air, blood pressure 144/77. Her lungs are clear. H eart, regular rate. Left foot is warm, the incision is smaller. The yellowish base is much better, it is real mucousy and clearing up with multiple small islands of granulation tissue popping up. The overall size of the wound is smaller. The surrounding skin looks good. Left fifth toe is healed. ASSESSMENT: 1. Cellulitis of the left foot. A. Postop infection following a bunion repair on 07/04/2018 with a simultaneous amputation of the le ft fifth toe following a traumatic crush injury to the tip of the toe with gangrenous and infection c johnson. B. Possible deep space involvement necessitating a long course of IV vancomycin. C. Cultures from the left fifth toe grew methicillin-resistant Staphylococcus aureus and Streptococc us epidermidis. D. Scheduled for 6-week course of IV vancomycin, oral ciprofloxacin and Flagyl. E. Continued excellent healing of the wound with the wound decreasing in size. No evidence of acute infection as of 08/29/2018. 2. Status post bunion repair with hardware on 07/04/2018. A. Complicated by postop cellulitis. B. Wound incision has broke down, but anticipate healing by secondary intention. 1. Wound has improved and is smaller as of 08/29/2018. C. Remains on IV vancomycin and oral Cipro and metronidazole. D. Due to be rechecked by Dr. Valenzuela, the psychiatry resident on 09/01/2018 with repeat x-rays. 3. Status post amputation of the left fifth toe at the PIP joint, following a crush injury complicat ed by infection and gangrenous change. A. Healed as of 08/29/2018. 4. History of diabetes mellitus. A. Hemoglobin A1c 5.5 on 06/21/2018. B. Controlled with no medications since marked weight reduction. 5. Peripheral artery disease. A. Status post stents placed in the iliac vessels bilateral on 07/21/2018. B. Following stent placement, excellent pulses in both feet as of 07/23/2018. 6. Hyperlipidemia. 7. Cigarette abuse. A. Ceased smoking as of 07/12/2018. B. Remains off of the cigarettes as of 08/22/2018. 8. Obesity. 9. Venous insufficiency of the lower extremities. A. Complicated by post-phlebitic syndrome of the right leg. B. Controlled as of 08/22/2018. 10. Depression, controlled. 11. Chronic low back pain secondary to lumbar spondylosis. A. Controlled as of 08/25/2018. B. Due to have surgery on her low back in the future. 12. Vulvovaginitis. A. Resolved as of 08/15/2018. 13. Right shoulder pain secondary to probable impingement syndrome. A. Controlled with heat and anti-inflammatory medicine as of 08/24/2018. PLAN: Continue present care. Continue present wound care. Will complete the IV vancomycin tomorrow evening. Anticipate discharge the following day, 08/31/2018.
[2018-08-29] MEDS: Pravastatin Sodium 20 MG TAB PO SCH (20:07)
[2018-08-30] MEDS: Ciprofloxacin 500 MG TAB PO SCH (05:07)
[2018-08-30 08:16] VITALS: BP 152/77; TEMP 97.9
[2018-08-30] MEDS: metroNIDAZOLE 250 MG TAB PO SCH (09:53)
[2018-08-30] MEDS: Aspirin 81 mg Enteric Coated Tablet PO SCH (09:53)
[2018-08-30] MEDS: Clopidogrel Bisulfate 75 MG TAB PO SCH (09:53)
[2018-08-30] MEDS: Nicotine 7 MG PATCH TOP SCH (09:54)
[2018-08-30] MEDS: Clotrimazole 1% Cream 15 GM TUBE TOP SCH (09:54)
[2018-08-30] MEDS: Vancomycin HCl 750 MG in Sodium Chloride 0.9% 250 ML 250 ML IVPB SCH (09:55)
[2018-08-30] MEDS: Vancomycin HCl 500 MG in Sodium Chloride 0.9% 100 ML IVPB SCH (09:55)
[2018-08-30] MEDS: Collagenase 250 UNITS/GM Ointment 30 GM TUBE TOP SCH (09:55)
--- NOTE | 2018-08-30 11:44 | DIS ---
DATE OF DISCHARGE: 08/30/2018 FINAL DIAGNOSES: 1. Cellulitis of the left foot. A. Postop infection following a bunion repair on 07/04/2018 with a simultaneous amputation of the left fifth toe following a traumatic crush injury to the tip of the toe with gangrenous and infection changes. B. Possible deep space involvement necessitating a long course of IV vancomycin. C. Cultures from the left fifth toe grew methicillin-resistant Staphylococcus aureus and Streptococcus epidermidis. D. Completed 6-week course of IV vancomycin and oral Cipro and metronidazole on the morning of 08/30/2018. E. Continued excellent healing of the wound with the wound decreasing in size. No evidence of acute infection as of 08/30/2018. 2. Status post bunion repair with hardware on 07/04/2018. A. Complicated by postop cellulitis. B. Wound incision has broke down, but anticipate healing by secondary intention. 1. Wound continues to heal and is much smaller as of 08/30/2018. 3. Status post amputation of the left fifth toe at the PIP joint, following a crush injury complicated by infection and gangrenous change. A. Healed as of 08/29/2018. 4. History of diabetes mellitus. A. Hemoglobin A1c 5.5 on 06/21/2018. B. Controlled with no medications since marked weight reduction. 5. Peripheral artery disease. A. Status post stents placed in the iliac vessels bilateral on 07/21/2018. B. Following stent placement, excellent pulses in both feet as of 07/23/2018. 6. Hyperlipidemia. 7. Cigarette abuse. A. Ceased smoking as of 07/12/2018. B. Remains off of the cigarettes as of 08/30/2018. 8. Obesity. 9. Venous insufficiency of the lower extremities. A. Complicated by post-phlebitic syndrome of the right leg. B. Controlled as of 08/30/2018. 10. Depression, controlled. 11. Chronic low back pain secondary to lumbar spondylosis. A. Controlled as of 08/30/2018. B. Due to have surgery on her low back in the future. 12. Vulvovaginitis. A. Resolved as of 08/15/2018. 13. Right shoulder pain secondary to probable impingement syndrome. A. Controlled with heat and anti-inflammatory medicine as of 08/24/2018. REASON FOR ADMISSION: The patient is a 62-year-old white female who has a history of diabetes that has been diet controlled after much weight loss and not requiring any medication. She has a neuropathy of the lower extremities and peripheral artery disease and long smoking history. She developed a very painful bunion on her left foot. She also had a recent crush injury to the left toe that resulted in gangrenous change, infection of that left fifth toe and eventual amputation of the distal portion of the left fifth toe. During the process of the amputation she also underwent a surgical repair of the bunion on the left foot. Postop, she developed an extensive cellulitis of the left foot and breakdown of the wound. She required hospitalization at the [facility] from 07/12/2018 until 07/22/2018 for the cellulitis. Cultures from the left fifth toe grew an MRSA and Streptococcus epidermidis that were sensitive to the vancomycin and rifampin. The patient was seen by Dr. Mandujano, Infectious Disease, who recommended the patient remain on IV vancomycin for a 6-week course due to this postop cellulitis and risk of deep penetration of the tissue. The patient had improved. During her hospitalization, she was found to have significant peripheral artery disease to that left foot, with no pulses in the foot. She underwent stents in both iliacs on 07/21/2018 without complication. After this, pulses were restored in both feet. She had a PICC line placed in the right arm. She had stopped smoking and was using Nicoderm patches with excellent results. She was transferred to [facility] on 07/22/2018 for continuation of the IV vancomycin for a 6-week course along with the Cipro and metronidazole with intentions to put her on minocycline 100 mg b.i.d. indefinitely upon the completion of these above antibiotics. HOSPITAL COURSE: During patient's hospitalization, she completed a 6-week course of IV vancomycin on the morning of 08/30/2018, along with oral Cipro and metronidazole. She will be started on minocycline 100 mg b.i.d. on 08/31/2018 and this will be taken indefinitely. The patient's IV vancomycin was administered through a PICC line in the right arm. The PICC line remained in good condition throughout the hospitalization and the PICC line will be removed after her last dose of vancomycin on the morning of 08/30/2018. The patient saw Dr. Mandujano during her hospital stay for followup and he was pleased with her progress and had recommended the IV vancomycin be extended for another week from the -30 of August which has been done. She is due to see Dr. Mandujano in followup on 09/13/2018. The patient is followed by Dr. Valenzuela her solvent plant operator in follow up, we did x-rays on her foot, was a little worried about the plates in the first metatarsal, but will follow up on this with followup x- rays on 09/01/2018. The wound on the foot made very excellent progress with the wound being cleaned daily, Santyl ointment applied and an overlying gauze nonstick dressing and gauze wrap were applied. The wound markedly diminished in size with the proximal and distal portions of the incision healing and with the middle third of the incision getting much smaller. The base was getting very clean with multiple islands of granulation tissue. There was no surrounding redness and no tenderness. The amputated left fifth toe that healed up very well. The patient completed her IV antibiotics on the evening of 08/30/2018. Her PICC line will be removed then and she will go home as of . During her hospital stay. Her vancomycin levels were followed weekly and showed therapeutic vancomycin levels. Her lab studies were followed. Her hemoglobin remained normal at last check on 08/29/2018 was 13.6 and white cell count 4300 with 53% segs, 21% lymphocytes, and a platelet count of 245. Sed rate on admission was 25 and dropped to 17 on 08/27/2018. Her CRP on admission was 0.45 and dropped to less than 0.5 throughout the remainder of her hospital stay. Her BUN and creatinine on 08/27/2018 was 18 and 0.85 with a GFR of 68. Her FBS was 105. During her hospitalization, she had some soreness in the right shoulder from probable impingement syndrome that responded to just heat application and naproxen. The patient did very well and will be discharged on 08/30/2018. The patient did follow up during her hospitalization with her electrical installation supervisor, Dr. Rodrigues, who had placed the stents for her legs and she was doing very well and will continue to follow up with him. DISPOSITION: DIET: Regular diet. ACTIVITY: Ambulate ad dimas using a walker on that left foot. WOUND CARE: The wound on the dorsal left foot should be cleansed daily gently with saline and then apply Santyl ointment and cover with a nonstick dressing and wrapped with a gauze. No smoking. MEDICATIONS: Aspirin 81 mg daily, Plavix 75 mg daily, naproxen 500 mg t.i.d. as needed, Nicoderm patch 7 mg daily, pravastatin 20 mg, sertraline 50 mg at bedtime, minocycline 100 mg b.i.d. FOLLOWUP: The patient should see her Infectious Disease physician, Dr. Mandujano on 09/13/2018. The patient due to see Dr. Valenzuela, her solvent plant operator on 2017. The patient is scheduled to see myself, primary physician on 09/20/2018. CODE STATUS: DNR. MTDD
== END 2018-08-30 14:30 | disposition home or self-care (01) | DRG 949 ==
LOC: MADMS 15:24
PROVIDERS: ADMIT Family Medicine; ATTEND Family Medicine
DX: T81.40XD Infection following a procedure, unspecified, subsequent encounter (principal); L03.116 Cellulitis of left lower limb; E11.52 Type 2 diabetes mellitus with diabetic peripheral angiopathy with gangrene; I96 Gangrene, not elsewhere classified; Z89.422 Acquired absence of other left toe(s); E11.51 Type 2 diabetes mellitus with diabetic peripheral angiopathy without gangrene; E78.5 Hyperlipidemia, unspecified; F17.210 Nicotine dependence, cigarettes, uncomplicated; E66.9 Obesity, unspecified; I87.2 Venous insufficiency (chronic) (peripheral); I80.9 Phlebitis and thrombophlebitis of unspecified site; F32.9 Major depressive disorder, single episode, unspecified; G89.29 Other chronic pain; M47.896 Other spondylosis, lumbar region; N76.0 Acute vaginitis; M75.41 Impingement syndrome of right shoulder; E11.40 Type 2 diabetes mellitus with diabetic neuropathy, unspecified; B95.4 Other streptococcus as the cause of diseases classified elsewhere; B95.62 Methicillin resistant Staphylococcus aureus infection as the cause of diseases classified elsewhere; Z16.22 Resistance to vancomycin related antibiotics; Z66 Do not resuscitate; M47.892 Other spondylosis, cervical region; Z68.39 Body mass index [BMI] 39.0-39.9, adult
CPT/HCPCS: 36415; 36416; 80053; 80061; 80069; 80202; 81001; 85025; 85652; 86140; G8978-GP-CI; G8978-GP-CK; G8979-GP-CI; J1650; J3370; J7050

== ENCOUNTER 2018-09-20 10:03 | Outpatient (CLI) | payer MEDICARE ==
[2018-09-20 10:27] LABS: Bilirubin Negative (Negative); Blood, Urine Trace (Negative); Clarity Clear (Clear); Glucose, Urine (Dipstick) Negative (Negative); Leukocyte Trace (Negative); Nitrite Negative (Negative); Protein, Urine (Dipstick) Negative (Neg-Trace); Urobilinogen 0.2 mg/dL (0.2-1.0)
[2018-09-20 10:37] LABS: Bacteria/HPF None Seen HPF (None Seen); RBC/HPF 0-3 HPF (0-3); Squamous Epithelial 0-3 HPF (0-3); WBC/HPF 0-3 HPF (0-3)
[2018-09-20 10:38] LABS: Other Microscopic Description C&S SET UP
== END 2018-09-20 10:04 | disposition home or self-care (01) ==
LOC: MADLABBHPM 10:03
PROVIDERS: ATTEND Family Medicine
DX: R35.0 Frequency of micturition (principal)
CPT/HCPCS: 81001; 87086

== ENCOUNTER 2020-03-24 12:10 | Outpatient (CLI) | payer MEDICARE ==
--- NOTE | 2020-03-24 13:35 | RAD ---
TWO VIEWS RIGHT TIBIA AND FIBULA: Comparison: None History: Leg pain FINDINGS: Two views of the right tibia/fibula shows no evidence of fracture or dislocation. Mild diffuse soft t issue swelling is seen. Mild degenerative changes are seen in the right knee. IMPRESSION: No evidence of acute osseous abnormality. POS: [facility]
== END 2020-03-24 12:11 | disposition home or self-care (01) ==
LOC: MADRAD 12:10
PROVIDERS: ATTEND Family Medicine
DX: M79.604 Pain in right leg (principal)

== ENCOUNTER 2022-06-26 14:13 | Emergency (ER) | payer OTHER | END 2022-06-26 15:23 | disposition home or self-care (01) | LOC: MADERS 14:13 | DX: S61.011A Laceration without foreign body of right thumb without damage to nail, initial encounter (principal); E11.9 Type 2 diabetes mellitus without complications; E78.00 Pure hypercholesterolemia, unspecified; W26.0XXA Contact with knife, initial encounter; Z87.891 Personal history of nicotine dependence | CPT/HCPCS: 12002 ==

== ENCOUNTER 2022-10-04 16:04 | Outpatient (CLI) | payer OTHER | END 2022-10-04 16:05 | disposition home or self-care (01) | LOC: MADEKG 16:04 | PROVIDERS: ATTEND Internal Medicine | DX: R07.89 Other chest pain (principal) | CPT/HCPCS: 93005; 93010 ==